=== PATIENT | female | born 1930 | race Caucasian/White ===

== ENCOUNTER → 2016-08-09 | Outpatient (CLI) | payer MEDICARE, OTHER | LOC: RAD 08:09 | PROVIDERS: ATTEND Specialist | DX: K21.9 Gastro-esophageal reflux disease without esophagitis (principal); R19.01 Right upper quadrant abdominal swelling, mass and lump; K44.9 Diaphragmatic hernia without obstruction or gangrene | CPT/HCPCS: 74247 ==

== ENCOUNTER → 2016-08-15 | Outpatient (CLI) | payer MEDICARE, OTHER ==
[~2016-08-15] MED LIST: AMINOPHYLLINE INJ/PF 250 MG/10 ML SDV IV ONE; REGADENOSON INJ 0.4 MG/5 ML DISP.SYRIN IV ONE
--- NOTE | 2016-08-15 14:23 | DRAGON STRESS TEST REPORT ---
INTRAVENOUS LEXISCAN CARDIOLITE STRESS TEST USING SINGLE PHOTON EMMISION COMPUTERIZED TOMOGRAPHIC. DATE OF PROCEDURE: August 15, 2016 INDICATION : Chest pain CARDIAC RISK FACTORS: Hypertension RESTING EKG: Sinus rhythm, LVH with secondary ST-T wave changes STRESS EKG: No significant changes noted with LexiScan bolus REASON FOR TERMINATION: Protocol. PROCEDURE REPORT: Baseline heart rate 77 beats per minute with blood pressure of 153/94. Patient had no significant complaints. Heart rate at 2 minutes post bolus 100 with a blood pressure of and 171/72. 3 minutes post bolus heart rate 96 with blood pressure of 158/78. No significant EKG changes were noted. Patient had no significant complaints during the procedure or postprocedure. CONCLUSIONS: Normal EKG and hemodynamic response to IV LexiScan. NUCLEAR DATA: At rest the patient was given 9.91 millicuries of technetium 99 sestamibi injected intravenously. As per protocol rest gated SPECT images were obtained. Subsequently the patient was given intravenous LexiScan at a dose of 0.4 mg in 5 mL intravenously, followed by flush with normal saline. Subsequently the stress dose of 31.9 millicuries of technetium 99 sestamibi was injected intravenously. As per protocol stress gated images were obtained. NUCLEAR INTERPRETATION: Both raw and processed data were used for interpretation. Visual, qualitative, computer-generated quantitative data was used. There was good myocardial uptake of technetium compound. Motion artifact and soft tissue attenuations were noted. Increased visceral uptake was noted. No definitive areas of transient perfusion defect noted. No definitive areas of fixed perfusion defect or scars noted. EKG gated imaging showed LV EF at 51 %, rest and stress gated EF similar visually. T. I D. ratio was 1.02. Lung heart ratio noted to be within normal limits 0.25. No significant extracardiac and abnormal radiotracer activities were noted. RV free wall uptake was noted to be normal. IMPRESSION: Also refer to comments under nuclear interpretation. Also test results needs to be interpreted in the context of pretest probability. 1. There is no definitive scintigraphic evidence of LexiScan induced myocardial ischemia. 2. There is no definitive scintigraphic evidence of myocardial infarction/scar. 3. EKG gated imaging shows left ejection fraction of approximately 51 %. 4. Clinical correlation requested as occasionally single vessel disease or balanced ischemia could be missed. In approximately 10% of the cases Lexiscan may not cause adequate vasodilatory stress. RECOMMENDATIONS: Aggressive risk factor modification, medical therapy. Clinical correlation with echocardiogram derived ejection fraction. Inability to exercise by itself can lead to increased cardiovascular event risks. Consider cardiology consultation if clinically indicated. I AM AVAILABLE FOR CARDIOLOGY CONSULTATION AND FOLLOWUP IF REQUESTED BY PMD David Cadena M.D., [facility] Horologist windows systems engineer, Board certified in cardiovascular diseases, Nuclear cardiology, Echocardiography Cardiac CT and cardiac MRI Ph. [phone] [facility]
== END ==
LOC: RAD 07:32
PROVIDERS: ATTEND Internal Medicine Cardiovascular Disease
DX: R07.9 Chest pain, unspecified (principal)
CPT/HCPCS: 93017; 78452; A9500; J2785; J0280; Q9969

== ENCOUNTER 2017-01-24 21:02 | Emergency (ER) | payer MEDICARE, OTHER ==
[2017-01-24 21:26] VITALS: BP 158/68
== END 2017-01-24 23:11 | disposition left against medical advice (07) ==
LOC: ER 21:02
DX: Z53.21 Procedure and treatment not carried out due to patient leaving prior to being seen by health care provider (principal)

== ENCOUNTER 2017-06-28 15:29 | Observation (INO) | payer MEDICARE, OTHER ==
--- NOTE | 2017-06-28 16:01 | ER Document Report ---
ED General - General Chief Complaint: Weakness Stated Complaint: WEAKNESS Time Seen by Provider: 06/28/17 15:42 Mode of Arrival: Medic Information source: Patient Notes: This is an 86-year-old female with a history of hypertension and coronary artery disease who is brought in by EMS for an episode of generalized weakness, slurred speech, near syncope. Patient was in the kitchen preparing a meal at the time. Patient is accompanied by family member who states that he tried to have her smile and she was unable to do it. He states that the patient was slurring speech during the event. Patient denies any chest pain at the time. She did report shortness of breath. TRAVEL OUTSIDE OF THE [place] IN LAST 30 DAYS: No - HPI Onset: Just prior to arrival Onset/Duration: Sudden Quality of pain: No pain Associated symptoms: Shortness of breath, Weakness, Other - Slurred speech. denies: Chest pain, Chills, Fever Exacerbated by: Denies Relieved by: Denies Similar symptoms previously: No Recently seen / treated by doctor: No - Related Data Allergies/Adverse Reactions: propoxyphene HCl [From Darvon] Allergy (Intermediate, Verified 06/28/17 15:45) heart palpitations Past Medical History - General Information source: Patient - Social History Smoking Status: Never Smoker Cigarette use (# per day): No Chew tobacco use (# tins/day): No Frequency of alcohol use: None Drug Abuse: None Lives with: Family Family History: Reviewed & Not Pertinent Patient has suicidal ideation: No Patient has homicidal ideation: No - Past Medical History Cardiac Medical History: Reports: Hx Heart Attack, Hx Hypertension - on meds Denies: Hx Coronary Artery Disease Pulmonary Medical History: Denies: Hx Asthma, Hx Bronchitis, Hx COPD, Hx Pneumonia Neurological Medical History: Denies: Hx Cerebrovascular Accident, Hx Seizures Renal/ Medical History: Denies: Hx Peritoneal Dialysis GI Medical History: Denies: Hx Hepatitis, Hx Hiatal Hernia, Hx Ulcer Musculoskeltal Medical History: Reports Hx Arthritis - Osteo Infectious Medical History: Denies: Hx Hepatitis Past Surgical History: Reports: Hx Cardiac Surgery - stents x 3, Hx Hysterectomy. Denies: Hx Mastectomy, Hx Open Heart Surgery, Hx Pacemaker - Immunizations Hx Diphtheria, Pertussis, Tetanus Vaccination: Yes Review of Systems - Review of Systems Constitutional: No symptoms reported EENT: No symptoms reported Cardiovascular: See HPI Respiratory: No symptoms reported Gastrointestinal: No symptoms reported Genitourinary: No symptoms reported Female Genitourinary: No symptoms reported Musculoskeletal: No symptoms reported Skin: No symptoms reported Hematologic/Lymphatic: No symptoms reported Neurological/Psychological: See HPI Physical Exam - Vital signs Vitals: Temp Pulse Resp BP Pulse Ox 97.5 F 77 16 147/58 H 98 06/28/17 15:30 06/28/17 15:30 06/28/17 15:30 06/28/17 15:30 06/28/17 15:30 Notes: Physical exam: GENERAL: 86-year-old female, alert and oriented 3, no acute distress HEAD: Atraumatic, normocephalic. EYES: Pupils equal round and reactive to light, extraocular movements intact, sclera anicteric, conjunctiva are normal. ENT: TMs normal, nares patent, oropharynx clear without exudates. Moist mucous membranes. NECK: Normal range of motion, supple without obvious mass or JVD. LUNGS: Breath sounds clear to auscultation bilaterally and equal. No wheezes rales or rhonchi. HEART: Regular rate and rhythm without murmurs, rubs or gallops. ABDOMEN: Soft, normoactive bowel sounds. No tenderness to palpation. No guarding, no rebound. No masses appreciated. EXTREMITIES: Normal range of motion, no pitting or edema. No clubbing or cyanosis. NEUROLOGICAL: The patient is alert and oriented 3, she is keenly responsive. She is able to answer the month and the her age correctly. She is able to follow commands (closing her eyes and opening them up again, making a fist and opening them up), she has a normal gaze, her visual patterson are tested and are normal, there is no obvious facial palsy, there is no motor drift of either arm or leg, her sensory is grossly intact, her best language tested: She got all picture descriptions correct, object naming and sentence reading was good. Her speech is clear (as per family member at the bedside), there is no extinction or inattention. Her NIH score is 0. PSYCH: Normal mood, normal affect. SKIN: Warm, Dry, normal turgor, no rashes or lesions noted. Course - Vital Signs Vital signs: Temp Pulse Resp BP Pulse Ox 97.5 F 78 16 133/37 H 96 06/28/17 15:30 06/28/17 18:00 06/28/17 18:00 06/28/17 18:02 06/28/17 18:02 - Laboratory Result Diagrams: 06/28/17 15:36 06/28/17 15:36 Laboratory results interpreted by me: 06/28/17 06/28/17 15:36 15:36 RDW 14.6 H Potassium 3.4 L Est GFR (Non-Af Amer) 51 L - Diagnostic Test Radiology reviewed: Image reviewed, Reports reviewed - CT of the head shows no acute process. Chest x-ray shows no infiltrates. - EKG Interpretation by Me Rate: Normal Rhythm: NSR - EKG shows normal sinus rhythm with a ventricular rate of 72, no acute ST-T wave changes Discharge - Discharge Clinical Impression: Near-syncope, TIA Condition: Stable Disposition: ADMITTED OBSERVATION Admitting Provider: Hospitalist - Dr Parks Unit Admitted: Telemetry
[2017-06-28] MEDS ORDERED: ASPIRIN 81 MG TABLET, CHEWABLE PO ONE (16:04)
[2017-06-28 16:27] LABS: INTERNATIONAL RATION (INR) 0.85; PROTHROMBIN TIME 12.3 SEC (11.4-15.4)
[2017-06-28 16:28] LABS: ALANINE AMINOTRANSFERASE 34 U/L (9-52); ALBUMIN 4.3 g/dL (3.5-5.0); ALKALINE PHOSPHATASE 84 U/L (38-126); ANION GAP 11 (5-19); ASPARTATE AMINO TRANSFERASE 26 U/L (14-36); BILIRUBIN,DIRECT 0.3 mg/dL (0.0-0.4); BILIRUBIN,TOTAL 0.5 mg/dL (0.2-1.3); BLOOD UREA NITROGEN 17 mg/dL (7-20); CALCIUM 10.2 mg/dL (8.4-10.2); CARBON DIOXIDE 30 mmol/L (22-30); CHLORIDE 102 mmol/L (98-107); CREATINE KINASE 61 U/L (30-135); GLUCOSE 109 mg/dL (75-110); POTASSIUM 3.4 mmol/L (3.6-5.0); SODIUM 143.4 mmol/L (137-145)
--- NOTE | 2017-06-28 16:28 | RADIOLOGY REPORT (SQ) ---
EXAM DESCRIPTION: CT HEAD WITHOUT COMPLETED DATE/TIME: 06/28/2017 4:16 pm REASON FOR STUDY: slurred speech COMPARISON: 03/13/2010 TECHNIQUE: Axial images acquired through the brain without intravenous contrast. Images reviewed wi th bone, brain and subdural windows. Images stored on PACS. All CT scanners at this facility use dose modulation, iterative reconstruction, and/or weight based d osing when appropriate to reduce radiation dose to as low as reasonably achievable (ALARA). [facility]: Dose Right [facility]: CareDose [facility]: Dose Right [facility]: Teradose 4D [facility]: Smart Websand RADIATION DOSE: CT Rad equipment meets quality standard of care and radiation dose reduction techniq ues were employed. CTDIvol: 64.6 mGy. DLP: 1034 mGy-cm.mGy. LIMITATIONS: None. FINDINGS: VENTRICLES: Mildly prominent. CEREBRUM: No masses. No hemorrhage. No midline shift. Areas of low density in the white matter mos t likely due to chronic micro-vascular ischemic change, noting scattered lacunar infarcts. No eviden ce for acute infarction. CEREBELLUM: No masses. No hemorrhage. No alteration of density. No evidence for acute infarction. EXTRAAXIAL SPACES: Age-related involutional change. No fluid collections. No masses. ORBITS AND GLOBE: No intra- or extraconal masses. Normal contour of globe without masses. CALVARIUM: No fracture. PARANASAL SINUSES: No fluid or mucosal thickening. SOFT TISSUES: No mass or hematoma. OTHER: No other significant finding. IMPRESSION: CHRONIC CHANGES OF ATROPHY AND MICROVASCULAR ISCHEMIA. NO ACUTE PROCESS. EVIDENCE OF ACUTE STROKE: NO. TECHNICAL DOCUMENTATION: JOB ID: [id number] Quality ID # [id number]: Final reports with documentation of one or more dose reduction techniques (e.g., Au tomated exposure control, adjustment of the mA and/or kV according to patient size, use of iterative reconstruction technique) 2010 [employer]- All Rights Reserved
[2017-06-28 16:40] LABS: ABSOLUTE BASOPHILS # (AUTO) 0.1 10^3/uL (0.0-0.2); ABSOLUTE EOSINOPHILS # (AUTO) 0.2 10^3/uL (0.0-0.6); ABSOLUTE LYMPHOCYTES (AUTO) 1.9 10^3/uL (0.5-4.7); ABSOLUTE MONOCYTES (AUTO) 0.6 10^3/uL (0.1-1.4); ABSOLUTE NEUT (AUTO) 4.5 10^3/uL (1.7-8.2); BASOPHILS % (AUTO) 0.8 % (0-2); CREATINE KINASE MB 1.12 ng/mL (<4.55); EOSINOPHILS % (AUTO) 2.1 % (0-6); HEMATOCRIT 42.2 % (36.0-47.0); HEMOGLOBIN 14.2 g/dL (12.0-15.5); LYMPHOCYTES % (AUTO) 25.9 % (13-45); MEAN CORPUSCULAR HEMOGLOBIN 29.8 pg (27.0-33.4); MEAN CORPUSCULAR HGB CONC 33.7 g/dL (32.0-36.0); MEAN CORPUSCULAR VOLUME 89 fl (80-97); MONOCYTES % (AUTO) 8.7 % (3-13); PLATELET COUNT 270 10^3/uL (150-450); RED BLOOD COUNT 4.77 10^6/uL (3.72-5.28); RED CELL DISTRIBUTION WIDTH 14.6 % (11.5-14.0); SEGMENTED NEUTROPHILS % (AUTO) 62.5 % (42-78); TOTAL CELLS COUNTED % (AUTO) 100 %; WHITE BLOOD COUNT 7.2 10^3/uL (4.0-10.5)
[2017-06-28 16:41] LABS: TROPONIN I < 0.012 ng/mL
--- NOTE | 2017-06-28 16:46 | RADIOLOGY REPORT (SQ) ---
EXAM DESCRIPTION: CHEST SINGLE VIEW COMPLETED DATE/TIME: 06/28/2017 4:22 pm REASON FOR STUDY: weakness, near syncope COMPARISON: 03/13/2010 EXAM PARAMETERS: NUMBER OF VIEWS: One view. TECHNIQUE: Single frontal radiographic view of the chest acquired. RADIATION DOSE: NA LIMITATIONS: None. FINDINGS: LUNGS AND PLEURA: No opacities, masses or pneumothorax. No pleural effusion. MEDIASTINUM AND HILAR STRUCTURES: No masses. Contour normal. HEART AND VASCULAR STRUCTURES: Heart normal in size. Normal vasculature. BONES: No acute findings. HARDWARE: None in the chest. OTHER: No other significant finding. IMPRESSION: NO ACUTE RADIOGRAPHIC FINDING IN THE CHEST. TECHNICAL DOCUMENTATION: JOB ID: [id number] [employer]- All Rights Reserved
[2017-06-28] MEDS ORDERED: POTASSIUM CHLORIDE 10 MEQ TABLET.SA PO ONE (18:46)
[2017-06-28] MEDS ORDERED: DOCUSATE SODIUM 100 MG CAPSULE PO PRN (19:17)
[2017-06-28] MEDS ORDERED: MAGNESIUM HYDROXIDE SUSP 30 ML UDCUP PO PRN (19:17)
--- NOTE | 2017-06-28 20:08 | EKG REPORT ---
SEVERITY:- BORDERLINE ECG - SINUS RHYTHM BORDERLINE T ABNORMALITIES, DIFFUSE LEADS : Confirmed by: David Cadena 28-Jun-2017 20:07:12
[2017-06-28] MEDS ORDERED: ATORVASTATIN CALCIUM 80 MG TABLET PO SCH (22:00)
[2017-06-28] MEDS ORDERED: ZOLPIDEM TARTRATE 5 MG TABLET PO PRN (22:37)
[2017-06-28] MEDS ORDERED: BENAZEPRIL HCL 10 MG TABLET PO ONE (22:37)
[2017-06-28] MEDS: BUPROPION HCL 100 MG TABLET PO SCH (22:50)
[2017-06-28] MEDS: HEPARIN SOD (PORCINE) 5,000 UNIT/ML 1 ML SYRINGE SUBCUT SCH (22:50)
[2017-06-29 05:17] LABS: CHOLESTEROL 112.84 mg/dL (0-200); TRIGLYCERIDES 72 mg/dL (<150)
[2017-06-29] MEDS: BUPROPION HCL 100 MG TABLET PO SCH ×2 (05:29→16:42)
[2017-06-29] MEDS: HEPARIN SOD (PORCINE) 5,000 UNIT/ML 1 ML SYRINGE SUBCUT SCH ×2 (05:30→16:49)
[2017-06-29 05:34] LABS: DIRECT LDL < 30 mg/dL (<100)
--- NOTE | 2017-06-29 05:51 | PDOC H&P ---
History of Present Illness Admission Date/PCP: 06/28/17 18:39 REUBEN ANDERSON MD Patient complains of: Weakness and slurred speech History of Present Illness: SALVATORE LR is a 86 year old female with past medical history of coronary artery disease status post coronary stents of 3 unknown arteries and hypertension. Patient presents with weakness and slurred speech after standing up from the toilet. She denies palpitations nausea vomiting headache blurred vision but was noted by her son to be unable to smile and some slurred speech. Symptoms resolved spontaneously within 10 minutes of onset without intervention. In the emergency room she is alert and oriented 3, talkative and following commands without deficits and at baseline. Her initial workup including CT of the head is unremarkable and she is referred to the hospitalist for admission. She denies previous episode, recent change in medications and unremarkable mood. Telemetry reveals several episodes of nonsustained V. tach with runs less than 10 which were asymptomatic. Past Medical History Cardiac Medical History: Reports: Myocardial Infarction, Hypertension - on meds Denies: Coronary Artery Disease Pulmonary Medical History: Denies: Asthma, Bronchitis, Chronic Obstructive Pulmonary Disease (COPD), Pneumonia Neurological Medical History: Denies: Seizures GI Medical History: Denies: Hepatitis, Hiatal Hernia Musculoskeltal Medical History: Reports: Arthritis - Osteo Hematology: Denies: Anemia, Sickle Cell Disease Past Surgical History Past Surgical History: Reports: Hysterectomy Denies: Amputation, Mastectomy, Pacemaker Social History Information Source: Patient, [facility] Records Lives with: Family Smoking Status: Never Smoker Frequency of Alcohol Use: None Family History Family History: CAD, CVA Parental Family History Reviewed: Yes Children Family History Reviewed: Yes Sibling(s) Family History Reviewed.: Yes Medication/Allergy Home Medications: Amlodipine Besylate/Benazepril [Lotrel 5-20 Mg Capsule] 1 each PO DAILY Gluc Van/Chondro Van A/Vit C/Mn [Glucosamine Chondroitin Tab] 1 each PO BID Levothyroxine Sodium [Synthroid 50 Mcg Tablet] 50 mcg PO DAILY 07/03/11 Aspirin [Aspirin 81 mg Chewable Tablet] 81 mg PO DAILY 10/18/13 Esomeprazole Magnesium [Nexium] 40 mg PO DAILY 10/18/13 Fluticasone Propionate [Flonase Nasal [employer] 50 Mcg/Fe [employer] 16 gm] 1 spray IH PRN PRN 10/18/13 Gabapentin [Neurontin 300 mg Capsule] 300 mg PO DAILY 10/18/13 Hydrochlorothiazide 25 mg PO DAILY 10/18/13 Multivitamin [Tab-A-Nikolay (Multiple Vitamin) Tablet] 1 tab PO DAILY 10/18/13 Zolpidem Tartrate [Ambien 10 mg Tablet] 5 mg PO PRN PRN 10/18/13 Bupropion HCl [Wellbutrin Sr 150 mg Tablet] 1 tab PO Q12 10/19/13 Diazepam 5 mg PO PRN PRN 06/29/17 Nitroglycerin 0.4 mg PO PRN PRN 06/29/17 Tramadol HCl [Ultram] 50 mg PO PRN PRN 06/29/17 Allergies/Adverse Reactions: propoxyphene HCl [From Darvon] Allergy (Intermediate, Verified 06/28/17 15:45) heart palpitations Review of Systems Constitutional: ABSENT: chills, fever(s), headache(s), weight gain, weight loss Eyes: ABSENT: visual disturbances Ears: ABSENT: hearing changes Cardiovascular: ABSENT: chest pain, dyspnea on exertion, edema, orthropnea, palpitations Respiratory: ABSENT: cough, hemoptysis Gastrointestinal: ABSENT: abdominal pain, constipation, diarrhea, hematemesis, hematochezia, nausea, vomiting Genitourinary: ABSENT: dysuria, hematuria Musculoskeletal: ABSENT: joint swelling Integumentary: ABSENT: rash, wounds Neurological: ABSENT: abnormal gait, abnormal speech, confusion, dizziness, focal weakness, syncope Psychiatric: ABSENT: anxiety, depression, homidical ideation, suicidal ideation Endocrine: ABSENT: cold intolerance, heat intolerance, polydipsia, polyuria Hematologic/Lymphatic: ABSENT: easy bleeding, easy bruising Physical Exam Vital Signs: Temp Pulse Resp BP Pulse Ox 98.3 F 87 20 140/57 H 98 06/29/17 03:48 06/29/17 04:00 06/29/17 04:00 06/29/17 04:00 06/29/17 04:00 Intake & Output 06/27/17 06/28/17 06/29/17 11:59 11:59 11:59 Intake Total 0 Balance 0 Weight 60.7 kg General appearance: PRESENT: no acute distress, well-developed, well-nourished Head exam: PRESENT: atraumatic, normocephalic Eye exam: PRESENT: conjunctiva pink, EOMI, PERRLA. ABSENT: scleral icterus Ear exam: PRESENT: normal external ear exam Mouth exam: PRESENT: moist, tongue midline Neck exam: ABSENT: carotid bruit, JVD, lymphadenopathy, thyromegaly Respiratory exam: PRESENT: clear to auscultation kwabena. ABSENT: rales, rhonchi, wheezes Cardiovascular exam: PRESENT: RRR. ABSENT: diastolic murmur, rubs, systolic murmur Pulses: PRESENT: normal dorsalis pedis pul Vascular exam: PRESENT: normal capillary refill GI/Abdominal exam: PRESENT: normal bowel sounds, soft. ABSENT: distended, guarding, mass, organolmegaly, rebound, tenderness Rectal exam: PRESENT: deferred Extremities exam: PRESENT: full ROM. ABSENT: calf tenderness, clubbing, pedal edema Neurological exam: PRESENT: alert, awake, oriented to person, oriented to place , oriented to time, oriented to situation, CN II-XII grossly intact. ABSENT: motor sensory deficit Psychiatric exam: PRESENT: appropriate affect, normal mood. ABSENT: homicidal ideation, suicidal ideation Skin exam: PRESENT: dry, intact, warm. ABSENT: cyanosis, rash Results Laboratory Results: 06/28/17 06/29/17 22:40 04:37 Magnesium 1.9 Triglycerides 72 Cholesterol 112.84 LDL Cholesterol Direct < 30 VLDL Cholesterol 14.0 HDL Cholesterol 72 06/28/17 22:40 Troponin I 0.012 Impressions: Chest X-Ray 06/28/17 16:04 IMPRESSION: NO ACUTE RADIOGRAPHIC FINDING IN THE CHEST. Head CT 06/28/17 16:05 IMPRESSION: CHRONIC CHANGES OF ATROPHY AND MICROVASCULAR ISCHEMIA. NO ACUTE PROCESS. EVIDENCE OF ACUTE STROKE: NO. Assessment & Plan - Diagnosis (1) TIA (transient ischemic attack) Is this a current diagnosis for this admission?: Yes Plan: Currently at baseline, telemetry observation with CVA care set, concern for nonsustained V. tach is because strongly suggest 30 day event monitor. (2) Nonsustained ventricular tachycardia Is this a current diagnosis for this admission?: Yes Plan: Patient does admit a history of palpitations and event monitor which was unremarkable. Several episodes on monitoring today will evaluate with chemistry and discuss with cardiology. (3) Coronary artery disease Is this a current diagnosis for this admission?: Yes Plan: Cardiology consult - Time Time Spent: 50 to 70 Minutes
[2017-06-29] MEDS ORDERED: LEVOTHYROXINE SODIUM 0.05 MG TABLET PO SCH ×2 (06:00)
[2017-06-29 09:35] VITALS: BP 144/75
[2017-06-29] MEDS ORDERED: GABAPENTIN 300 MG CAPSULE PO SCH (10:00)
[2017-06-29] MEDS ORDERED: LANSOPRAZOLE 30 MG TAB.RAP.DR PO SCH (10:00)
[2017-06-29] MEDS ORDERED: ASPIRIN 81 MG TABLET, CHEWABLE PO SCH (10:00)
--- NOTE | 2017-06-29 21:46 | RADIOLOGY REPORT (SQ) ---
EXAM DESCRIPTION: MRI HEAD WITHOUT COMPLETED DATE/TIME: 06/29/2017 10:36 am REASON FOR STUDY: tia E03.9 HYPOTHYROIDISM, UNSPECIFIED I47.2 VENTRICULAR TACHYCARDIA COMPARISON: CT 06/28/2017 TECHNIQUE: Multiplanar imaging includes non-contrasted T1, T2, FLAIR, and diffusion with ADC map seq uences. Images stored on PACS. LIMITATIONS: None. FINDINGS: ANATOMY: No anomalies. Normal vascular flow voids. Pituitary fossa normal. CSF SPACES: Atrophy induced prominence of ventricles and CSF spaces. CEREBRUM: High signal intensity lesions scattered throughout the white matter on FLAIR imaging with d istribution suggesting micro-vascular ischemic changes. No evidence of hemorrhage, mass, or extraaxi al fluid collection. POSTERIOR FOSSA: No signal alteration. No hemorrhage. No edema, masses or mass effect. Internal nelida tory canals, cerebello-pontine angles, mastoids normal. DIFFUSION IMAGING: Negative for acute or sub-acute infarction. ORBITS: No masses. Globes normal. PARANASAL SINUSES: No fluid levels. Mucosa normal. OTHER: No other significant finding. IMPRESSION: ATROPHY AND CHRONIC MICRO-VASCULAR ISCHEMIC CHANGES. OTHERWISE NORMAL MRI OF THE BRAIN W ITHOUT INTRAVENOUS GADOLINIUM CONTRAST. EVIDENCE OF ACUTE STROKE: NO. TECHNICAL DOCUMENTATION: JOB ID: [id number] [employer]- All Rights Reserved
--- NOTE | 2017-06-29 22:56 | RADIOLOGY REPORT (SQ) ---
EXAM DESCRIPTION: CAROTID DOPPLER COMPLETED DATE/TIME: 06/29/2017 10:24 pm REASON FOR STUDY: tia E03.9 HYPOTHYROIDISM, UNSPECIFIED I47.2 VENTRICULAR TACHYCARDIA COMPARISON: None. TECHNIQUE: Grayscale ultrasound, Doppler velocity and spectra, and color Doppler images acquired of the extra-cranial carotid and vertebral arteries. Images stored on PACS. LIMITATIONS: None. FINDINGS: RIGHT CAROTID CCA Velocities: Within normal limits. ICA Velocities Peak systolic 0.76 m/s. End diastolic 0.19 m/s. Proximal ICA/CCA peak systolic ratio 1.1. Spectra normal. No significant plaque. LEFT CAROTID CCA Velocities: Within normal limits. ICA Velocities Peak systolic 0.55 m/s. End diastolic 0.14 m/s. Proximal ICA/CCA peak systolic ratio 0.8. Spectra normal. No significant plaque. VERTEBRAL ARTERIES: Antegrade flow. Normal waveforms. SUBCLAVIAN ARTERIES: No finding. OTHER: No other significant finding. IMPRESSION: NO HEMODYNAMICALLY SIGNIFICANT STENOSIS. COMMENT: Quality ID #[id number]: Velocity criteria are extrapolated from the diameter data as defined by t he Society of Radiologists in Ultrasound Consensus Conference. Radiology 2003: 229; 340-346. TECHNICAL DOCUMENTATION: JOB ID: [id number] [employer]- All Rights Reserved
--- NOTE | 2017-06-30 05:33 | DISCHARGE SUMMARY E ---
Discharge Summary NAME: SALVATORE LR : 1930 AGE: 86Y ADMITTED: 06/28/2017 DISCHARGED: 06/29/2017 DISCHARGE DIAGNOSIS: TRANSIENT ISCHEMIC ATTACK. HISTORY OF PRESENT ILLNESS: The patient is an 86-year-old female, who presented with sudden onset of dysarthria and expressive aphasia, as well as some drooling. The patient had this last about 15 minutes and it resolved spontaneously. The patient had been taking aspirin 81 mg prior to presentation. The patient is admitted for workup of TIA. HOSPITAL COURSE: The patient is an 86-year-old female, who presented with expressive aphasia, drooling and some confusion. It was felt that she had a TIA as these symptoms resolved after 15 or 20 minutes. The patient had been on aspirin 81 mg daily prior and her aspirin was increased to 325 mg daily. The patient was monitored on telemetry and had no cardiac arrhythmias. Carotid Doppler was done and showed no significant stenosis. MRI showed some microvascular ischemic changes, but no acute changes. The patient was back to her baseline and it was felt she could be discharged home. PHYSICAL EXAMINATION: VITAL SIGNS: Patient is afebrile. Blood pressure 130/82, pulse 90, respirations 12. HEENT: Pupils equal, round and reactive. NECK: No carotid bruits. No thyromegaly. No JVD. CHEST: Exam clear to auscultation. CARDIOVASCULAR: Exam is regular rate and rhythm. No murmurs, rubs or gallops appreciated. PMI is in the left mid clavicular line. ABDOMEN: Exam with positive bowel sounds. Soft, nontender, no organomegaly. EXTREMITIES: Exam with no edema. Patient has 1+ dorsalis pedis pulses bilaterally. NEUROLOGIC: Exam is alert and oriented x3. Cranial nerves 2-12 are normal. Strength is normal. Sensory exam shows normal light touch throughout. Gait and station are normal. DISCHARGE MEDICATIONS: The patient is to continue with her previous outpatient medications exactly as she was taking before with the exception that her aspirin will be increased from 81 mg daily to 325 mg daily. FOLLOWUP: The patient will follow up with Dr. Neumann in 1-2 weeks. TIME SPENT: Twenty-five minutes. DICTATING PHYSICIAN: Carmella STREET M.D. [id number] PHY#: [id number] ID: [id number] JOB#: [id number] ACCT: [id number] cc:Kamilla GRACE M.D. Timothy Busteed, M.D. >
== END 2017-06-29 17:20 | disposition home or self-care (01) ==
LOC: ER 15:29 → EH 18:39 → 3W 22:23
PROVIDERS: ADMIT Internal Medicine; ATTEND Internal Medicine
DX: G45.9 Transient cerebral ischemic attack, unspecified (principal); I25.10 Atherosclerotic heart disease of native coronary artery without angina pectoris; I10 Essential (primary) hypertension; I47.2 Ventricular tachycardia; R06.02 Shortness of breath; R55 Syncope and collapse; I25.2 Old myocardial infarction; Z95.5 Presence of coronary angioplasty implant and graft; Z79.82 Long term (current) use of aspirin; Z82.3 Family history of stroke; Z82.49 Family history of ischemic heart disease and other diseases of the circulatory system; Z79.899 Other long term (current) drug therapy
CPT/HCPCS: 93005; 99285; 36415 ×2; 82553; 82550; 83735; 84443; 85025; 85610; 80053; 84484; 80061; 93880; 70551; 71045; 70450; 93010; G0378 ×3; A9270 ×10; J1644 ×2; J3490 ×2

== ENCOUNTER → 2017-07-24 | Outpatient (CLI) | payer MEDICARE, OTHER ==
[2017-07-24 16:31] LABS: ABSOLUTE EOSINOPHILS # (AUTO) 0.2 10^3/uL (0.0-0.6); ABSOLUTE LYMPHOCYTES (AUTO) 1.4 10^3/uL (0.5-4.7); ABSOLUTE MONOCYTES (AUTO) 0.5 10^3/uL (0.1-1.4); ABSOLUTE NEUT (AUTO) 4.1 10^3/uL (1.7-8.2); BASOPHILS % (AUTO) 0.7 % (0-2); EOSINOPHILS % (AUTO) 3.3 % (0-6); HEMATOCRIT 37.9 % (36.0-47.0); HEMOGLOBIN 12.9 g/dL (12.0-15.5); LYMPHOCYTES % (AUTO) 21.6 % (13-45); MEAN CORPUSCULAR HEMOGLOBIN 29.8 pg (27.0-33.4); MEAN CORPUSCULAR VOLUME 87 fl (80-97); MONOCYTES % (AUTO) 8.2 % (3-13); PLATELET COUNT 225 10^3/uL (150-450); RED BLOOD COUNT 4.34 10^6/uL (3.72-5.28); RED CELL DISTRIBUTION WIDTH 14.6 % (11.5-14.0); SEGMENTED NEUTROPHILS % (AUTO) 66.2 % (42-78); TOTAL CELLS COUNTED % (AUTO) 100 %; WHITE BLOOD COUNT 6.3 10^3/uL (4.0-10.5)
[2017-07-24 16:50] LABS: ALANINE AMINOTRANSFERASE 28 U/L (9-52); ALBUMIN 3.9 g/dL (3.5-5.0); ALKALINE PHOSPHATASE 74 U/L (38-126); ANION GAP 11 (5-19); ASPARTATE AMINO TRANSFERASE 22 U/L (14-36); BILIRUBIN,DIRECT 0.2 mg/dL (0.0-0.4); BILIRUBIN,TOTAL 0.4 mg/dL (0.2-1.3); BLOOD UREA NITROGEN 15 mg/dL (7-20); CALCIUM 9.6 mg/dL (8.4-10.2); CARBON DIOXIDE 29 mmol/L (22-30); CHLORIDE 103 mmol/L (98-107); GLUCOSE 100 mg/dL (75-110); POTASSIUM 4.1 mmol/L (3.6-5.0); SODIUM 142.5 mmol/L (137-145); TOTAL PROTEIN 6.4 g/dL (6.3-8.2); URIC ACID 6.2 mg/dL (2.5-7.5)
[2017-07-24 17:08] LABS: ERYTHROCYTE SEDIMENTATION RATE 11 mm/hr (0-30)
[2017-07-27 10:49] LABS: CYCLIC CITRUL PEPTIDE IGG/A AB 2 units (0-19)
== END ==
LOC: OD 15:09
PROVIDERS: ATTEND Physician Assistant
DX: M79.644 Pain in right finger(s) (principal); M15.1 Heberden's nodes (with arthropathy); M15.4 Erosive (osteo)arthritis; Z82.61 Family history of arthritis
CPT/HCPCS: 36415; 80053; 84550; 85025; 85652; 86038; 86200; 86430

== ENCOUNTER 2018-05-24 15:23 | Observation (INO) | payer MEDICARE, OTHER ==
[2018-05-24 15:49] LABS: ABSOLUTE EOSINOPHILS # (AUTO) 0.2 10^3/uL (0.0-0.6); ABSOLUTE LYMPHOCYTES (AUTO) 1.7 10^3/uL (0.5-4.7); ABSOLUTE MONOCYTES (AUTO) 0.6 10^3/uL (0.1-1.4); ABSOLUTE NEUT (AUTO) 3.2 10^3/uL (1.7-8.2); BASOPHILS % (AUTO) 0.5 % (0-2); EOSINOPHILS % (AUTO) 3.2 % (0-6); HEMATOCRIT 38.8 % (36.0-47.0); HEMOGLOBIN 13.2 g/dL (12.0-15.5); LYMPHOCYTES % (AUTO) 29.4 % (13-45); MEAN CORPUSCULAR HEMOGLOBIN 28.7 pg (27.0-33.4); MEAN CORPUSCULAR HGB CONC 34.2 g/dL (32.0-36.0); MEAN CORPUSCULAR VOLUME 84 fl (80-97); PLATELET COUNT 185 10^3/uL (150-450); RED BLOOD COUNT 4.61 10^6/uL (3.72-5.28); RED CELL DISTRIBUTION WIDTH 16.4 % (11.5-14.0); SEGMENTED NEUTROPHILS % (AUTO) 56.9 % (42-78); TOTAL CELLS COUNTED % (AUTO) 100 %; WHITE BLOOD COUNT 5.6 10^3/uL (4.0-10.5)
--- NOTE | 2018-05-24 15:53 | RADIOLOGY REPORT (SQ) ---
EXAM DESCRIPTION: CHEST SINGLE VIEW COMPLETED DATE/TIME: 05/24/2018 3:46 pm REASON FOR STUDY: bed t1 cp COMPARISON: 03/13/2010 EXAM PARAMETERS: NUMBER OF VIEWS: One view. TECHNIQUE: Single frontal radiographic view of the chest acquired. RADIATION DOSE: NA LIMITATIONS: None. FINDINGS: LUNGS AND PLEURA: No opacities, masses or pneumothorax. No pleural effusion. MEDIASTINUM AND HILAR STRUCTURES: No masses. Contour normal. HEART AND VASCULAR STRUCTURES: Heart normal in size. Normal vasculature. BONES: No acute findings. HARDWARE: None in the chest. OTHER: No other significant finding. IMPRESSION: NO ACUTE RADIOGRAPHIC FINDING IN THE CHEST. TECHNICAL DOCUMENTATION: JOB ID: [id number] [employer]- All Rights Reserved Reading location - IP/workstation name: [email or web address]
[2018-05-24 16:07] LABS: ALANINE AMINOTRANSFERASE 26 U/L (9-52); ALBUMIN 4.1 g/dL (3.5-5.0); ALKALINE PHOSPHATASE 89 U/L (38-126); ANION GAP 14 (5-19); ASPARTATE AMINO TRANSFERASE 26 U/L (14-36); BILIRUBIN,DIRECT 0.2 mg/dL (0.0-0.4); BILIRUBIN,TOTAL 0.4 mg/dL (0.2-1.3); BLOOD UREA NITROGEN 19 mg/dL (7-20); CALCIUM 9.3 mg/dL (8.4-10.2); CARBON DIOXIDE 25 mmol/L (22-30); CHLORIDE 105 mmol/L (98-107); CREATINE KINASE 46 U/L (30-135); GLUCOSE 103 mg/dL (75-110); POTASSIUM 4.1 mmol/L (3.6-5.0); SODIUM 143.7 mmol/L (137-145); TOTAL PROTEIN 6.9 g/dL (6.3-8.2)
[2018-05-24 16:18] LABS: CREATINE KINASE MB 0.45 ng/mL (<4.55)
[2018-05-24 16:19] LABS: TROPONIN I < 0.012 ng/mL
--- NOTE | 2018-05-24 16:56 | ER Document Report ---
ED General - General Chief Complaint: General Weakness Stated Complaint: GENERAL WEAKNESS Time Seen by Provider: 05/24/18 15:44 Mode of Arrival: Ambulatory Information source: Patient Notes: 87-year-old female with known coronary artery disease brought into the emergency room after an episode of chest pain associated with near syncopal symptoms. TRAVEL OUTSIDE OF THE [place] IN LAST 30 DAYS: No - HPI Onset: Just prior to arrival Onset/Duration: Sudden Quality of pain: No pain Severity: None Pain Level: Denies Associated symptoms: Chest pain, Shortness of breath. denies: Nonproductive cough, Productive cough, Fever Exacerbated by: Denies Relieved by: Denies Similar symptoms previously: No Recently seen / treated by doctor: No - Related Data Allergies/Adverse Reactions: propoxyphene HCl [From Darvon] Allergy (Intermediate, Verified 06/28/17 15:45) heart palpitations Past Medical History - General Information source: Patient - Social History Smoking Status: Never Smoker Cigarette use (# per day): No Chew tobacco use (# tins/day): No Frequency of alcohol use: None Drug Abuse: None Lives with: Family Family History: CAD, CVA Patient has suicidal ideation: No Patient has homicidal ideation: No - Past Medical History Cardiac Medical History: Reports: Hx Heart Attack, Hx Hypertension - on meds Denies: Hx Coronary Artery Disease Pulmonary Medical History: Denies: Hx Asthma, Hx Bronchitis, Hx COPD, Hx Pneumonia Neurological Medical History: Denies: Hx Cerebrovascular Accident, Hx Seizures Renal/ Medical History: Denies: Hx Peritoneal Dialysis GI Medical History: Denies: Hx Hepatitis, Hx Hiatal Hernia, Hx Ulcer Musculoskeletal Medical History: Reports Hx Arthritis - Osteo Infectious Medical History: Denies: Hx Hepatitis Past Surgical History: Reports: Hx Cardiac Surgery - stents x 3, Hx Hysterectomy. Denies: Hx Mastectomy, Hx Open Heart Surgery, Hx Pacemaker - Immunizations Hx Diphtheria, Pertussis, Tetanus Vaccination: Yes Hx Pneumococcal Vaccination: 05/24/17 Review of Systems - Review of Systems Constitutional: denies: Chills, Fever EENT: No symptoms reported Cardiovascular: See HPI Respiratory: No symptoms reported Gastrointestinal: No symptoms reported Genitourinary: No symptoms reported Female Genitourinary: No symptoms reported Musculoskeletal: No symptoms reported Skin: No symptoms reported Hematologic/Lymphatic: No symptoms reported Neurological/Psychological: No symptoms reported Physical Exam - Vital signs Vitals: Pulse Ox 96 05/24/18 15:38 Notes: Physical exam: GENERAL: Patient is alert and oriented x3, no acute distress, no longer in pain. HEAD: Atraumatic, normocephalic. EYES: Pupils equal round and reactive to light, extraocular movements intact, sclera anicteric, conjunctiva are normal. ENT: TMs normal, nares patent, oropharynx clear without exudates. Moist mucous membranes. NECK: Normal range of motion, supple without obvious mass or JVD. LUNGS: Breath sounds clear to auscultation bilaterally and equal. No wheezes rales or rhonchi. HEART: Regular rate and rhythm without murmurs, rubs or gallops. ABDOMEN: Soft, normoactive bowel sounds. No tenderness to palpation. No guarding, no rebound. No masses appreciated. EXTREMITIES: Normal range of motion, no pitting or edema. No clubbing or cyanosis. NEUROLOGICAL: Cranial nerves II through XII grossly intact. Normal speech, moving all extremities. PSYCH: Normal mood, normal affect. SKIN: Warm, Dry, normal turgor, no rashes or lesions noted. Course - Vital Signs Vital signs: Temp Pulse Resp BP Pulse Ox 97.2 F 57 L 18 127/51 H 96 05/24/18 15:43 05/24/18 18:12 05/24/18 18:12 05/24/18 18:12 05/24/18 18:12 - Laboratory Result Diagrams: 05/24/18 15:04 05/24/18 15:04 Laboratory results interpreted by me: 05/24/18 05/24/18 15:04 15:04 RDW 16.4 H Creatinine 1.34 H Est GFR ( Amer) 45 L Est GFR (Non-Af Amer) 37 L - Diagnostic Test Radiology reviewed: Image reviewed, Reports reviewed - Chest x-ray shows no infiltrates - EKG Interpretation by Me Rate: Bradycardia - EKG shows sinus bradycardia with a ventricular rate of 48, no acute ST-T wave changes Discharge - Discharge Clinical Impression: Chest pain, Near syncope Condition: Stable Disposition: ADMITTED OBSERVATION Admitting Provider: Hospitalist - Dr Ruggiero Unit Admitted: Telemetry
--- NOTE | 2018-05-24 17:18 | EKG REPORT ---
SEVERITY:- BORDERLINE ECG - SINUS BRADYCARDIA BORDERLINE T WAVE ABNORMALITIES : Confirmed by: Isael Jaimes MD 24-May-2018 17:17:54
[2018-05-24] MEDS ORDERED: MORPHINE SULFATE 10 MG/ML INJ IV PRN (17:29)
[2018-05-24] MEDS ORDERED: NITROGLYCERIN 0.4 MG/TAB 25 TAB/BOTTLE SL PRN ×2 (17:29→17:35)
[2018-05-24] MEDS ORDERED: ZOLPIDEM TARTRATE 5 MG PO PRN (17:35)
[2018-05-24] MEDS ORDERED: LEVOTHYROXINE SODIUM 0.05 MG TABLET PO ONE (17:41)
[2018-05-24] MEDS ORDERED: [UNRECOGNIZED DRUG - OTHER] PO SCH (18:00)
--- NOTE | 2018-05-24 18:07 | PDOC H&P ---
History of Present Illness Admission Date/PCP: ARNOLDO LEE Patient complains of: Chest pain History of Present Illness: SALVATORE LR is a 87 year old female with history of coronary artery disease status post stent placement in March 2017, hypertension, hypothyroidism, abdominal aortic aneurysm, gastroesophageal reflux disease, depression, anxiety , seasonal allergies, restless leg syndrome, came to the emergency room with complaints of chest pain. Patient is given the history of left back pain for the last couple of days on and off. Today this morning she felt tired and felt like sleep he went to the bathroom and started having left-sided chest pain pain scale was 5 x 10 pressure-like pain localized pain not associated with shortness of breath at that time she felt like she is fading away started having severe sweating and the son who lives next door came and give her a nitroglycerin pill after that he felt like his mom is possibly about to pass out so he called EMS to bring her to the hospital for further evaluation. No history of nausea vomiting diarrhea reported. No problems with urination. Complains of occasional headaches. Denies any shortness of breath. She said she has this mild cough. And slight runny nose. Runny nose with clear drainage. In the emergency room the routine workup was done troponin was negative EKG shows sinus bradycardia. On examination patient alert and awake communicating very well. She preferred to be a full code. Past Medical History Cardiac Medical History: Reports: Myocardial Infarction, Hypertension - on meds Denies: Coronary Artery Disease Pulmonary Medical History: Denies: Asthma, Bronchitis, Chronic Obstructive Pulmonary Disease (COPD), Pneumonia EENT Medical History: Reports: Other - Seasonal allergies Neurological Medical History: Reports: Other - History of TIA Denies: Seizures Endocrine Medical History: Reports: Hypothyroidism GI Medical History: Reports: Gastroesophageal Reflux Disease Denies: Hepatitis, Hiatal Hernia Musculoskeltal Medical History: Reports: Arthritis - Osteo Psychiatric Medical History: Reports: Depression, General Anxiety Disorder Hematology: Denies: Anemia, Sickle Cell Disease Past Surgical History Past Surgical History: Reports: Appendectomy, Hysterectomy Denies: Amputation, Mastectomy, Pacemaker Social History Smoking Status: Never Smoker Frequency of Alcohol Use: None Family History Family History: CAD, CVA Parental Family History Reviewed: Yes - Son is with history of diabetes mellitus , daughter a few years ago Children Family History Reviewed: Yes Sibling(s) Family History Reviewed.: Yes Medication/Allergy Home Medications: Amlodipine Besylate/Benazepril [Lotrel 5-20 Mg Capsule] 1 each PO DAILY Gluc Van/Chondro Van A/Vit C/Mn [Glucosamine Chondroitin Tab] 1 each PO BID Levothyroxine Sodium [Synthroid 50 Mcg Tablet] 50 mcg PO DAILY 07/03/11 Aspirin [Aspirin 81 mg Chewable Tablet] 81 mg PO DAILY 10/18/13 Esomeprazole Magnesium [Nexium] 40 mg PO DAILY 10/18/13 Fluticasone Propionate [Flonase Nasal [place] 50 Mcg/[place] 16 gm] 1 spray IH PRN PRN 10/18/13 Gabapentin [Neurontin 300 mg Capsule] 300 mg PO DAILY 10/18/13 Multivitamin [Tab-A-Nikolay (Multiple Vitamin) Tablet] 1 tab PO DAILY 10/18/13 Zolpidem Tartrate [Ambien 10 mg Tablet] 5 mg PO PRN PRN 10/18/13 Diazepam 5 mg PO PRN PRN 06/29/17 Nitroglycerin 0.4 mg PO PRN PRN 06/29/17 Tramadol HCl [Ultram] 50 mg PO PRN PRN 06/29/17 Bupropion HCl [Wellbutrin Xl 300mg 24hr Tablet] 1 tab PO DAILY 05/24/18 Carvedilol [Coreg 3.125 mg Tablet] 1 tab PO BID 05/24/18 Cholecalciferol (Vitamin D3) [Vitamin D3 1000 Unit Tablet] See Protocol Furosemide [Lasix 20 mg Tablet] 0.5 tab PO DAILY 05/24/18 Allergies/Adverse Reactions: propoxyphene HCl [From Darvon] Allergy (Intermediate, Verified 06/28/17 15:45) heart palpitations Review of Systems Constitutional: PRESENT: fatigue, weakness. ABSENT: fever(s) Eyes: ABSENT: visual disturbances Ears: ABSENT: hearing changes Nose, Mouth, and Throat: PRESENT: other - Nasal discharge Cardiovascular: ABSENT: chest pain, dyspnea on exertion, orthropnea Respiratory: PRESENT: cough. ABSENT: dyspnea Gastrointestinal: ABSENT: abdominal pain, diarrhea, nausea, vomiting Genitourinary: ABSENT: dysuria, hematuria Musculoskeletal: PRESENT: muscle weakness Psychiatric: PRESENT: anxiety. ABSENT: hallucinations Physical Exam Vital Signs: Temp Pulse Resp BP Pulse Ox 97.2 F 46 L 15 130/89 H 96 05/24/18 15:43 05/24/18 15:43 05/24/18 15:43 05/24/18 15:43 05/24/18 15:43 General appearance: PRESENT: no acute distress Head exam: PRESENT: atraumatic Eye exam: PRESENT: PERRLA Teeth exam: PRESENT: edentulous Neck exam: ABSENT: carotid bruit, JVD, lymphadenopathy, thyromegaly Respiratory exam: PRESENT: clear to auscultation kwabena. ABSENT: rales, rhonchi, wheezes Cardiovascular exam: PRESENT: RRR. ABSENT: diastolic murmur, rubs, systolic murmur GI/Abdominal exam: PRESENT: normal bowel sounds, soft. ABSENT: distended, guarding, mass, organolmegaly, rebound, tenderness Neurological exam: PRESENT: alert, awake, oriented to person, oriented to place , oriented to time, oriented to situation, CN II-XII grossly intact. ABSENT: motor sensory deficit Psychiatric exam: PRESENT: anxious, appropriate affect, normal mood. ABSENT: agitated, homicidal ideation, suicidal ideation Results Laboratory Results: 05/24/18 15:04 05/24/18 15:04 05/24/18 05/24/18 15:04 15:04 WBC 5.6 RBC 4.61 Hgb 13.2 Hct 38.8 MCV 84 MCH 28.7 MCHC 34.2 RDW 16.4 H Plt Count 185 Seg Neutrophils % 56.9 Lymphocytes % 29.4 Monocytes % 10.0 Eosinophils % 3.2 Basophils % 0.5 Absolute Neutrophils 3.2 Absolute Lymphocytes 1.7 Absolute Monocytes 0.6 Absolute Eosinophils 0.2 Absolute Basophils 0.0 Sodium 143.7 Potassium 4.1 Chloride 105 Carbon Dioxide 25 Anion Gap 14 BUN 19 Creatinine 1.34 H Est GFR ( Amer) 45 L Est GFR (Non-Af Amer) 37 L Glucose 103 Calcium 9.3 Total Bilirubin 0.4 AST 26 ALT 26 Alkaline Phosphatase 89 Total Protein 6.9 Albumin 4.1 05/24/18 05/24/18 15:04 15:04 Creatine Kinase 46 CK-MB (CK-2) 0.45 Troponin I < 0.012 Impressions: Chest X-Ray 05/24/18 15:29 IMPRESSION: NO ACUTE RADIOGRAPHIC FINDING IN THE CHEST. Assessment & Plan - Diagnosis (1) Chest pain Is this a current diagnosis for this admission?: Yes Plan: 05/24/2018 plan today is to do the serial cardiac enzymes x3, EKGs x3 every 8 hours. Cardiology consult was requested. Echocardiogram was requested. Patient was started on aspirin, she is already on cholesterol medication, she was placed on Lovenox 30 mg subcu daily, lipid profile was requested for the morning. Pharmacological stress test was requested for tomorrow. PRN morphine was ordered was placed for chest pains. She was placed on oxygen 2 L nasal cannula. sHe was admitted under observation status. nitroglycerin 0.4 mg every 5 minutes as needed was ordered for chest pain. Patient's heart rate is 46 in the ER, because of the bradycardia beta-gabbi was not started as part of VT core pressure. (2) Coronary artery disease Is this a current diagnosis for this admission?: Yes Plan: 05/24/2018 patient has history of coronary artery disease status post stent placement in March 2017. Follow-up with gum [facility] in [facility]. Cardiology consult was requested acute VT code measures were implemented and patient was arranged for formal vascular stress test tomorrow. Patient does not have any stent card with her. Patient's heart rate is 46 in the ER. Beta blockers were not started. (3) HTN (hypertension) Qualifiers: Hypertension type: essential hypertension Qualified Code(s): I10 - Essential (primary) hypertension Is this a current diagnosis for this admission?: Yes Plan: 05/24/2018 patient blood pressure is 130/89 with heart rate of 46. She is on amlodipine/benazepril 5/20 mg po daily, Lasix 20 mg half tablet daily, Coreg 3.125 mg p.o. twice daily. We will resume her home medications here. (4) TIA (transient ischemic attack) Is this a current diagnosis for this admission?: Yes Plan: 05/24/18 review of the old records shows patient has previous history of CVA/ TIA. But the patient denies she had a history of TIA before. Patient is alert and oriented communicating well on examination no focal neurological deficits noticed. (5) Restless leg syndrome Is this a current diagnosis for this admission?: Yes Plan: 05/24/2018 for her restless leg syndrome patient is on Neurontin at home. Plan is to continue the medication during the hospital stay. Denies any symptoms of restless leg syndrome at this point. (6) Hypothyroidism Is this a current diagnosis for this admission?: Yes Plan: 05/24/2018 is taking levothyroxine 50 mcg daily for hypothyroidism to resume the medication during the hospital stay. (7) Depression Is this a current diagnosis for this admission?: Yes Plan: 2017 has history of anxiety and depression she is on diazepam 5 milligrams p.o. daily, Wellbutrin 300 mg p.o. daily at home. plan is to restart the medications here. (8) Insomnia Is this a current diagnosis for this admission?: Yes Plan: 05/24/2018 she has history of insomnia she is taking zolpidem 5 mg p.o. at bedtime. To resume zolpidem here. - Time Time Spent: 30 to 50 Minutes Medications reviewed and adjusted accordingly: Yes Anticipated discharge: Home
[2018-05-24] MEDS ORDERED: ENOXAPARIN SODIUM INJ 30 MG/0.3 ML DISP.SYRIN SUBCUT SCH (22:00)
[2018-05-24] MEDS ORDERED: FAMOTIDINE 20 MG TABLET PO SCH (22:00)
[2018-05-24] MEDS ORDERED: SIMVASTATIN 10 MG TABLET PO SCH (22:00)
[2018-05-25 01:01] LABS: CREATINE KINASE MB 0.39 ng/mL (<4.55)
[2018-05-25 01:10] LABS: TROPONIN I < 0.012 ng/mL
[2018-05-25] MEDS: BUPROPION HCL 100 MG TABLET PO SCH ×3 (05:47→15:51)
[2018-05-25] MEDS ORDERED: LEVOTHYROXINE SODIUM 0.05 MG TABLET PO SCH (06:00)
[2018-05-25 06:43] LABS: HEMATOCRIT 37.1 % (36.0-47.0); HEMOGLOBIN 12.7 g/dL (12.0-15.5); MEAN CORPUSCULAR HEMOGLOBIN 28.9 pg (27.0-33.4); MEAN CORPUSCULAR HGB CONC 34.1 g/dL (32.0-36.0); MEAN CORPUSCULAR VOLUME 85 fl (80-97); PLATELET COUNT 169 10^3/uL (150-450); RED BLOOD COUNT 4.39 10^6/uL (3.72-5.28); RED CELL DISTRIBUTION WIDTH 16.2 % (11.5-14.0); WHITE BLOOD COUNT 5.4 10^3/uL (4.0-10.5)
[2018-05-25] MEDS ORDERED: ZOLPIDEM TARTRATE 5 MG TABLET PO PRN (06:59)
[2018-05-25 07:20] LABS: ANION GAP 9 (5-19); BLOOD UREA NITROGEN 16 mg/dL (7-20); CARBON DIOXIDE 27 mmol/L (22-30); CHLORIDE 109 mmol/L (98-107); CHOLESTEROL 98.98 mg/dL (0-200); CREATINE KINASE 34 U/L (30-135); GLUCOSE 94 mg/dL (75-110); POTASSIUM 3.6 mmol/L (3.6-5.0); SODIUM 144.9 mmol/L (137-145); TRIGLYCERIDES 76 mg/dL (<150)
[2018-05-25 07:28] LABS: CREATINE KINASE MB 0.46 ng/mL (<4.55)
[2018-05-25 07:31] LABS: DIRECT LDL 41 mg/dL (<100)
[2018-05-25 07:35] LABS: TROPONIN I < 0.012 ng/mL
[2018-05-25] MEDS ORDERED: AMLODIPINE BESYLATE 5 MG TABLET PO SCH (10:00)
[2018-05-25] MEDS ORDERED: ASPIRIN 325 MG TABLET, ENT COATED PO SCH (10:00)
[2018-05-25] MEDS ORDERED: BENAZEPRIL HCL 20 MG TABLET PO SCH (10:00)
[2018-05-25] MEDS ORDERED: GABAPENTIN 300 MG CAPSULE PO SCH (10:00)
[2018-05-25] MEDS ORDERED: MULTIVITAMIN TABLET PO SCH (10:00)
[2018-05-25 13:20] LABS: CREATINE KINASE MB 0.44 ng/mL (<4.55)
[2018-05-25] MEDS ORDERED: REGADENOSON INJ 0.4 MG/5 ML DISP.SYRIN IV ONE (13:22)
[2018-05-25 13:24] LABS: TROPONIN I < 0.012 ng/mL
--- NOTE | 2018-05-25 13:37 | Physician Advisory Note ---
Physician Advisor ProgressNote .: [facility] I have reviewed the medical record for this patient. Physician Advisor Statement: Please consider documentin. Most likely cause of CP: angina/acute coronary insufficiency syndrome related to significant bradycardia? GERD? ... 2. Medical necessity: if pt is felt to need continued monitoring &/or eval through a 2nd MN tonight because of clinical issues (persistent concerning bradycardia, or abnormal results on today's eval, ...) instead of d/c home tonight, please document them & may change to Inpatient status. - If she can be d/c'd today, or kept a 2nd MN tonight only because of logistical delays in testing that are not caused by her underlying condition, then of course she should not be changed to Inpatient status. Thanks! CK
--- NOTE | 2018-05-25 16:24 | XCELERA REPORT ---
[address] [address] Transthoracic Echocardiogram Report Name: SALVATORE LR Age: 87 yrs Gender: Female : 1930 Patient Status: Inpatient Patient Location: [address] [place], [place] [id number] Study Date: 05/25/2018 10:44 AM Height: 64 in Weight: 143 lb BSA: 1.7 m2 Procedure: A two-dimensional transthoracic echocardiogram with color flow and Doppler was performed. Study Quality: Good. Reason For Study: LV Function, size, wall thickness,Valve Function History: Chest pain. Ordering Physician: GUALBERTO GANN Performed By: Sue Ramirez Interpretation Summary The left ventricle is normal in size. There is normal left ventricular wall thickness. Left ventricular systolic function is normal. LV EF is 65% Doppler measurements suggest impaired left ventricular relaxation, which is associated with grade I/IV or mild diastolic dysfunction The left ventricular wall motion is normal. There is no thrombus. There is no ventricular septal defect visualized. The right ventricle is normal in size and function. The right atrium is normal. The left atrial size is normal. The interatrial septum is intact with no evidence for an atrial septal defect. There is no Doppler evidence for an interatrial shunt There is no evidence of mitral valve prolapse. There is no vegetation seen on the mitral valve. There is no mitral valve stenosis. There is a mild amount of mitral regurgitation There is no aortic valvular vegetation. There is no aortic valve stenosis There is no LVOT obstruction. No aortic regurgitation is present. There is no tricuspid stenosis. There is a mild amount of tricuspid regurgitation There is mild pulmonary hypertension by echo RVSP is 34 to 39 mm of Hg , with RA mean of 5 to 10. There is no pulmonic valvular stenosis. There is a mild amount of pulmonic regurgitation The aortic root is normal size. The inferior vena cava appeared normal and decreased > 50% with respiration (RAP 5-10 mmHg) There is no pericardial effusion. MMode/2D Measurements & Calculations RVDd: 3.1 cm LVIDd: 5.2 cm FS: 36.3 % Ao root diam: 3.4 cm IVSd: 1.0 cm LVIDs: 3.3 cm EDV(Teich): 128.8 ml Ao root area: 9.3 cm2 LVPWd: 1.0 cm ESV(Teich): 44.3 ml LA dimension: 3.6 cm EF(Teich): 65.6 % Doppler Measurements & Calculations MV E max milvia: MV P1/2t max milvia: Ao V2 max: LV V1 max P.2 cm/sec 102.2 cm/sec 148.4 cm/sec 5.0 mmHg MV A max milvia: MV P1/2t: 52.6 msec Ao max PG: LV V1 max: 127.3 cm/sec MVA(P1/2t): 4.2 cm2 8.8 mmHg 112.0 cm/sec MV E/A: 0.79 MV dec slope: 568.8 cm/sec2 MV dec time: 0.18 sec PA V2 max: PI end-d milvia: TR max milvia: MV P1/2t-pr_phl: 92.3 cm/sec 111.3 cm/sec 270.1 cm/sec 52.6 msec PA max P.4 mmHg TR max P.2 mmHg Left Ventricle The left ventricle is normal in size. There is normal left ventricular wall thickness. Left ventricular systolic function is normal. LV EF is 65%. Doppler measurements suggest impaired left ventricular relaxation, which is associated with grade I/IV or mild diastolic dysfunction. The left ventricular wall motion is normal. There is no thrombus. There is no ventricular septal defect visualized. Right Ventricle The right ventricle is normal in size and function. Atria The right atrium is normal. The left atrial size is normal. The interatrial septum is intact with no evidence for an atrial septal defect. There is no Doppler evidence for an interatrial shunt. Mitral Valve There is no evidence of mitral valve prolapse. There is no vegetation seen on the mitral valve. There is no mitral valve stenosis. There is a mild amount of mitral regurgitation. Aortic Valve There is no aortic valvular vegetation. There is no aortic valve stenosis. There is no LVOT obstruction. No aortic regurgitation is present. Tricuspid Valve There is no tricuspid stenosis. There is a mild amount of tricuspid regurgitation. There is mild pulmonary hypertension by echo. RVSP is 34 to 39 mm of Hg , with RA mean of 5 to 10. Pulmonic Valve There is no pulmonic valvular stenosis. There is a mild amount of pulmonic regurgitation. Great Vessels The aortic root is normal size. The inferior vena cava appeared normal and decreased > 50% with respiration (RAP 5-10 mmHg). Effusions There is no pericardial effusion. : GUALBERTO GANN > Kori Reza
[2018-05-25 16:32] LABS: AMORPHOUS SEDIMENT,URINE TRACE /HPF; APPEARANCE,URINE SLIGHTLY-CLOUDY; BILIRUBIN,URINE NEGATIVE (NEGATIVE); COLOR,URINE YELLOW; GLUCOSE, URINE NEGATIVE (NEGATIVE); KETONES,URINE NEGATIVE (NEGATIVE); LEUKOCYTE ESTERASE,URINE LARGE (NEGATIVE); NITRITE,URINE POSITIVE (NEGATIVE); PROTEIN,URINE NEGATIVE (NEGATIVE); UROBILINOGEN,URINE NEGATIVE mg/dL (<2.0)
--- NOTE | 2018-05-25 17:46 | PDOC DISCHARGE SUMMARY ---
General - Admit/Disc Date/PCP Admission Date/Primary Care Provider: 05/24/18 17:42 ARNOLDO LEE Discharge Date: 05/25/18 - Discharge Diagnosis (1) Chest pain Is this a current diagnosis for this admission?: Yes Summary: 05/24/2018 patient has history of coronary artery disease status post stent placement in March 2017. Follow-up with injection molding machine offbearer in [facility]. Cardiology consult was requested acute PR code measures were implemented and patient was arranged for formal vascular stress test tomorrow. Patient does not have any stent card with her. Patient's heart rate is 46 in the ER. Beta blockers were not started. 05/25/2018 patient is admitted for chest pain probably secondary to angina/acute coronary syndrome secondary to but bradycardia. Has history of coronary artery disease status post stent placement in 2016. The pharmacological stress test was done today. Which was negative. I discussed the plan with Dr. Reza the injection molding machine offbearer. He is okay to discharge the patient today. He is asymptomatic today. (2) Coronary artery disease Is this a current diagnosis for this admission?: Yes Summary: 05/25/2018 patient has history of coronary artery disease with status post stent placement. Came with chest pain stress test is negative today. (3) HTN (hypertension) Is this a current diagnosis for this admission?: Yes Summary: 05/24/2018 patient blood pressure is 130/89 with heart rate of 46. She is on amlodipine/benazepril 5/20 mg po daily, Lasix 20 mg half tablet daily, Coreg 3.125 mg p.o. twice daily. We will resume her home medications here. 05/25/2018 vitals today blood pressure is 139/53 pulse rate is 74. Cardia resolved. Patient is on amlodipine/Benzapril 5/20 mg daily Lasix 20 mg half tablet daily Coreg 3.125 mg twice a day at home I requested her to resume the medications. (4) TIA (transient ischemic attack) Is this a current diagnosis for this admission?: Yes Summary: 05/24/18 review of the old records shows patient has previous history of CVA/ TIA. But the patient denies she had a history of TIA before. Patient is alert and oriented communicating well on examination no focal neurological deficits noticed. 05/25/2018 patient will records indicates previous history of CVA/TIA. Patient asymptomatic during the hospital course. On examination alert and oriented communicating well no focal neurological deficits. (5) Restless leg syndrome Is this a current diagnosis for this admission?: Yes Summary: 05/24/2018 for her restless leg syndrome patient is on Neurontin at home. Plan is to continue the medication during the hospital stay. Denies any symptoms of restless leg syndrome at this point. 05/25/2018 patient has history of restless leg syndrome on Neurontin no complaints during the hospital stay. (6) Hypothyroidism Is this a current diagnosis for this admission?: Yes Summary: 05/25/2018 patient was advised to continue levothyroxine 50 mcg p.o. daily. (7) Depression Is this a current diagnosis for this admission?: Yes Summary: 05/25/2018 during the hospital stay patient denied any anxiety or depression. At home she is on diazepam 5 mg p.o. daily, Wellbutrin 300 mg p.o. daily. Advised her to continue the home medications. (8) Insomnia Is this a current diagnosis for this admission?: Yes - Additional Information Discharge Diet: Cardiac Discharge Activity: Activity As Tolerated Home Medications: Amlodipine Besylate/Benazepril [Lotrel 5-20 mg Capsule] 1 each PO DAILY Gluc Van/Chondro Van A/Vit C/Mn [Glucosamine Chondroitin Tab] 1 each PO BID Levothyroxine Sodium [Synthroid 0.05 mg Tablet] 50 mcg PO DAILY 07/03/11 Aspirin [Aspirin 81 mg Chewable Tablet] 81 mg PO DAILY 10/18/13 Esomeprazole Magnesium [Nexium] 40 mg PO DAILY 10/18/13 Fluticasone Propionate [Flonase Nasal [place]ay 50 Mcg/Ouray 16 gm] 1 spray IH PRN PRN 10/18/13 Gabapentin [Neurontin 300 mg Capsule] 300 mg PO DAILY 10/18/13 Multivitamin [Tab-A-Nikolay (Multiple Vitamin) Tablet] 1 tab PO DAILY 10/18/13 Zolpidem Tartrate [Ambien 10 mg Tablet] 5 mg PO PRN PRN 10/18/13 Diazepam 5 mg PO PRN PRN 06/29/17 Nitroglycerin 0.4 mg PO PRN PRN 06/29/17 Tramadol HCl [Ultram] 50 mg PO PRN PRN 06/29/17 Bupropion HCl [Wellbutrin Xl 300mg 24hr Tablet] 1 tab PO DAILY 05/24/18 Carvedilol [Coreg 3.125 mg Tablet] 1 tab PO BID 05/24/18 Cholecalciferol (Vitamin D3) [Vitamin D3 1000 Unit Tablet] See Protocol Furosemide [Lasix 20 mg Tablet] 0.5 tab PO DAILY 05/24/18 Levothyroxine Sodium [Synthroid 0.05 mg Tablet] 0.05 mg PO Q6AM tablet History of Present Illness History of Present Illness: SALVATORE LR is a 87 year old female with history of coronary artery disease status post stent placement in March 2017, hypertension, hypothyroidism, abdominal aortic aneurysm, gastroesophageal reflux disease, depression, anxiety , seasonal allergies, restless leg syndrome, came to the emergency room with complaints of chest pain. Patient is given the history of left back pain for the last couple of days on and off. Today this morning she felt tired and felt like sleep he went to the bathroom and started having left-sided chest pain pain scale was 5 x 10 pressure-like pain localized pain not associated with shortness of breath at that time she felt like she is fading away started having severe sweating and the son who lives next door came and give her a nitroglycerin pill after that he felt like his mom is possibly about to pass out so he called EMS to bring her to the hospital for further evaluation. No history of nausea vomiting diarrhea reported. No problems with urination. Complains of occasional headaches. Denies any shortness of breath. She said she has this mild cough. And slight runny nose. Runny nose with clear drainage. In the emergency room the routine workup was done troponin was negative EKG shows sinus bradycardia. On examination patient alert and awake communicating very well. She preferred to be a full code. Physical Exam Vital Signs: Temp Pulse Resp BP Pulse Ox 98.3 F 75 16 161/58 H 98 05/25/18 15:51 05/25/18 15:51 05/25/18 15:51 05/25/18 15:51 05/25/18 15:51 Intake & Output 05/24/18 05/25/18 05/26/18 06:59 06:59 06:59 Intake Total 120 Output Total 700 Balance -580 Weight 65.1 kg General appearance: PRESENT: no acute distress Head exam: PRESENT: atraumatic Eye exam: PRESENT: PERRLA Neck exam: ABSENT: carotid bruit, JVD, lymphadenopathy, thyromegaly Respiratory exam: PRESENT: clear to auscultation kwabena. ABSENT: rales, rhonchi, wheezes Cardiovascular exam: PRESENT: RRR. ABSENT: diastolic murmur, rubs, systolic murmur GI/Abdominal exam: PRESENT: normal bowel sounds, soft. ABSENT: distended, guarding, mass, organolmegaly, rebound, tenderness Neurological exam: PRESENT: alert, awake, oriented to person, oriented to place , oriented to time, oriented to situation, CN II-XII grossly intact. ABSENT: motor sensory deficit Psychiatric exam: PRESENT: appropriate affect, normal mood. ABSENT: homicidal ideation, suicidal ideation Results Laboratory Results: 05/25/18 06:19 05/25/18 06:19 05/25/18 05/25/18 05/25/18 06:19 06:19 15:50 WBC 5.4 RBC 4.39 Hgb 12.7 Hct 37.1 MCV 85 MCH 28.9 MCHC 34.1 RDW 16.2 H Plt Count 169 Sodium 144.9 Potassium 3.6 Chloride 109 H Carbon Dioxide 27 Anion Gap 9 BUN 16 Creatinine 0.91 Est GFR ( Amer) > 60 Est GFR (Non-Af Amer) 58 L Glucose 94 Calcium 9.0 Triglycerides 76 Cholesterol 98.98 LDL Cholesterol Direct 41 VLDL Cholesterol 15.0 HDL Cholesterol 56 Urine Color YELLOW Urine Appearance SLIGHTLY-CLOUDY Urine pH 6.0 Ur Specific [place] 1.010 Urine Protein NEGATIVE Urine Glucose (UA) NEGATIVE Urine Ketones NEGATIVE Urine Blood NEGATIVE Urine Nitrite POSITIVE H Ur Leukocyte Esterase LARGE H Urine WBC (Auto) 107 Urine RBC (Auto) 2 05/24/18 05/25/18 05/25/18 18:08 00:24 06:19 Creatine Kinase CK-MB (CK-2) 0.39 0.46 Troponin I < 0.012 < 0.012 < 0.012 05/25/18 05/25/18 06:19 12:10 Creatine Kinase 34 CK-MB (CK-2) 0.44 Troponin I < 0.012 Impressions: Chest X-Ray 05/24/18 15:29 IMPRESSION: NO ACUTE RADIOGRAPHIC FINDING IN THE CHEST. Qualifiers - * PATIENT BEING DISCHARGED WITH ANY OF THE FOLLOWING DIAGNOSIS: No VTE patient discharged on overlapping Therapy?: No
[2018-05-25 18:02] VITALS: BP 149/56
--- NOTE | 2018-05-25 21:44 | DRAGON STRESS TEST REPORT ---
Intravenous Lexiscan Cardiolite stress test using single photon emmision computerized tomography. Date of procedure: 05/25/2018. Ordering Provider: Dr. Henderson. Patient's status : Inpatient. Indication: Chest pain. Coronary risk factors: Age, and hypertension Resting EKG: Sinus Rhythm. Within Normal Limits Stress EKG: No changes of ischemia. The patient no chest pain or discomfort, and there were no arrhythmias seen. Reason for termination: Protocol. Conclusions: Normal EKG and hemodynamic response to IV Lexiscan. Nuclear data: At rest the patient was given 10.40 millicuries of technetium 99m sestamibi injected intravenously. As per protocol rest non gated SPECT images were obtained. Subsequently the patient was given intravenous Lexiscan at a dose of 0.4 mg in 5 mL intravenously, followed by flush with normal saline. Subsequently the stress dose of 29.0 millicuries of technetium 99m sestamibi was injected intravenously. As per protocol stress gated images were obtained. Nuclear interpretation: Review of images showed that all segments of the myocardium had normal perfusion at rest, and normal perfusion post stress with IV Lexiscan. All segments of the myocardium had normal motion, contraction, and thickening by gated study. T. I D. ratio was normal at 1.05. There is no abnormal transient ischemic dilatation of the left ventricle. Computer read rest, and stress left ventricular ejection fraction were 56 %, and 53 %, respectively. Visually both the stress and rest ejection fractions were normal, and greater than 55%. Conclusion: 1. There is no scintigraphic evidence of Lexiscan induced myocardial ischemia. 2. There is no scintigraphic evidence of myocardial infarction/scar. Recommendations: Aggressive risk factor modification, and treating the underlying co- morbidities . MTDD
[2018-05-25] MEDS ORDERED: FAMOTIDINE 20 MG TABLET PO SCH (22:00)
[2018-05-25] MEDS ORDERED: ENOXAPARIN SODIUM INJ 30 MG/0.3 ML DISP.SYRIN SUBCUT SCH (22:00)
--- NOTE | 2018-06-01 10:08 | EKG REPORT ---
SEVERITY:- ABNORMAL ECG - SINUS RHYTHM VENTRICULAR PREMATURE COMPLEX NONSPECIFIC INTRAVENTRICULAR CONDUCTION DELAY : Confirmed by: David Cadena 25-May-2018 09:08:22
== END 2018-05-25 18:23 | disposition home or self-care (01) ==
LOC: ER 15:23 → EH 17:42 → 4N 19:30
PROVIDERS: ADMIT Hospitalist; ATTEND Hospitalist
DX: R07.89 Other chest pain (principal); I10 Essential (primary) hypertension; G25.81 Restless legs syndrome; E03.9 Hypothyroidism, unspecified; F32.9 Major depressive disorder, single episode, unspecified; G47.00 Insomnia, unspecified; K21.9 Gastro-esophageal reflux disease without esophagitis; I25.10 Atherosclerotic heart disease of native coronary artery without angina pectoris; R09.89 Other specified symptoms and signs involving the circulatory and respiratory systems; R00.1 Bradycardia, unspecified; Z95.5 Presence of coronary angioplasty implant and graft; R05 Cough; Z86.73 Personal history of transient ischemic attack (TIA), and cerebral infarction without residual deficits; Z79.82 Long term (current) use of aspirin; Z79.899 Other long term (current) drug therapy; Z90.49 Acquired absence of other specified parts of digestive tract; Z82.49 Family history of ischemic heart disease and other diseases of the circulatory system; Z82.3 Family history of stroke
CPT/HCPCS: 93005; 99285; 36415 ×2; 82553 ×2; 82550 ×2; 85025; 85027; 80048; 80053; 81001; 84484 ×2; 80061; 93306; 93017; 71045; 78452; 93010; G0378 ×3; A9500; J2785; A9270 ×9; J3490 ×2; J1650; Q9969

== ENCOUNTER 2018-08-13 10:43 | Emergency (ER) | payer MEDICARE, OTHER ==
[2018-08-13 10:54] VITALS: BP 151/48
[2018-08-13] MEDS ORDERED: OXYCODONE-ACETAMINOPHEN 5-325 MG TABLET PO ONE (11:41)
--- NOTE | 2018-08-13 11:42 | ER Document Report ---
ED Medical Screen (RME) - General Chief Complaint: Jaw Pain Stated Complaint: JAW PAIN Time Seen by Provider: 08/13/18 11:32 Primary Care Provider: BECK MENDENHALL PA [Primary Care Provider] - Follow up as needed Notes: Patient is a 88-year-old female that presents to the emergency department for chief complaint of right jaw pain. Patient states his pain started yesterday and has gotten progressively worse, mainly on the outside of her jaw just in front of her ear. ROS: Other than noted above, the 12 point review of systems was reviewed with the patient and were negative, all pertinent findings are included in the HPI. PHYSICAL EXAMINATION: Vital signs reviewed. GENERAL: Well-appearing, well-nourished and in no acute distress. HEAD: Atraumatic, normocephalic. EYES: Pupils equal round extraocular movements intact, conjunctiva are normal. ENT: Nares patent, tenderness to palpation over the right parotid gland, with mild erythema. NECK: Normal range of motion CV: Heart regular rate and rhythm LUNGS: No respiratory distress Musculoskeletal: Normal range of motion NEUROLOGICAL: Normal speech PSYCH: Normal mood, normal affect. MDM: Patient seen and examined for rapid initial assessment. Vital signs reviewed. A comprehensive ED assessment and evaluation of the patient, analysis of test results and completion of the medical decision making process will be conducted by additional ED providers. *Note is created using voice recognition software and may contain spelling, syntax or grammatical errors. TRAVEL OUTSIDE OF THE [place] IN LAST 30 DAYS: No - Related Data Allergies/Adverse Reactions: propoxyphene HCl [From Darvon] Allergy (Intermediate, Verified 06/28/17 15:45) heart palpitations Past Medical History - Past Medical History Cardiac Medical History: Reports: Hx Heart Attack, Hx Hypertension - on meds Denies: Hx Coronary Artery Disease Pulmonary Medical History: Denies: Hx Asthma, Hx Bronchitis, Hx COPD, Hx Pneumonia Neurological Medical History: Denies: Hx Cerebrovascular Accident, Hx Seizures Endocrine Medical History: Reports: Hx Hypothyroidism Renal/ Medical History: Denies: Hx Peritoneal Dialysis GI Medical History: Reports: Hx Gastroesophageal Reflux Disease. Denies: Hx Hepatitis, Hx Hiatal Hernia, Hx Ulcer Musculoskeltal Medical History: Reports Hx Arthritis - Osteo Psychiatric Medical History: Denies: Hx Depression Infectious Medical History: Denies: Hx Hepatitis Past Surgical History: Reports: Hx Appendectomy, Hx Cardiac Surgery - stents x 3, Hx Hysterectomy. Denies: Hx Mastectomy, Hx Open Heart Surgery, Hx Pacemaker - Immunizations Hx Diphtheria, Pertussis, Tetanus Vaccination: Yes History of Influenza Vaccine for 03/2017 - 08/2017 Season: Yes Influenza Administration Date for 03/2017 - 08/2017 Season: 03/24/17 Physical Exam - Vital signs Vitals: Temp Pulse Resp BP Pulse Ox 98 F 87 16 151/48 H 96 08/13/18 10:53 08/13/18 10:53 08/13/18 10:53 08/13/18 10:53 08/13/18 10:53 Course - Vital Signs Vital signs: Temp Pulse Resp BP Pulse Ox 98 F 87 16 151/48 H 96 08/13/18 10:53 08/13/18 10:53 08/13/18 10:53 08/13/18 10:53 08/13/18 10:53 Doctor's Discharge - Discharge Referrals: BECK MENDENHALL PA [Primary Care Provider] - Follow up as needed
[2018-08-13 12:20] LABS: ABSOLUTE LYMPHOCYTES (AUTO) 1.2 10^3/uL (0.5-4.7); ABSOLUTE MONOCYTES (AUTO) 0.7 10^3/uL (0.1-1.4); ABSOLUTE NEUT (AUTO) 8.5 10^3/uL (1.7-8.2); BASOPHILS % (AUTO) 0.2 % (0-2); EOSINOPHILS % (AUTO) 0.2 % (0-6); HEMATOCRIT 43.2 % (36.0-47.0); HEMOGLOBIN 14.7 g/dL (12.0-15.5); LYMPHOCYTES % (AUTO) 11.7 % (13-45); MEAN CORPUSCULAR HGB CONC 33.9 g/dL (32.0-36.0); MEAN CORPUSCULAR VOLUME 85 fl (80-97); MONOCYTES % (AUTO) 6.8 % (3-13); PLATELET COUNT 216 10^3/uL (150-450); RED BLOOD COUNT 5.06 10^6/uL (3.72-5.28); SEGMENTED NEUTROPHILS % (AUTO) 81.1 % (42-78); TOTAL CELLS COUNTED % (AUTO) 100 %; WHITE BLOOD COUNT 10.5 10^3/uL (4.0-10.5)
[2018-08-13 12:50] LABS: ANION GAP 11 (5-19); BLOOD UREA NITROGEN 13 mg/dL (7-20); CALCIUM 9.9 mg/dL (8.4-10.2); CARBON DIOXIDE 30 mmol/L (22-30); CHLORIDE 101 mmol/L (98-107); GLUCOSE 119 mg/dL (75-110); SODIUM 142.3 mmol/L (137-145)
--- NOTE | 2018-08-13 13:46 | RADIOLOGY REPORT (SQ) ---
EXAM DESCRIPTION: CT FACIAL AREA WITH COMPLETED DATE/TIME: 08/13/2018 1:20 pm REASON FOR STUDY: right parotid gland swelling, pain COMPARISON: None. TECHNIQUE: Post contrast images through the facial bones and orbits windowed for bone and soft tissu e. Additional coronal and sagittal reconstructed images reviewed. All images stored on PACS. All CT scanners at this facility use dose modulation, iterative reconstruction, and/or weight based d osing when appropriate to reduce radiation dose to as low as reasonably achievable (ALARA). [facility]: Dose Right [facility]: CareDose [facility]: Dose Right [facility]: Teradose 4D [facility]: [employer] CONTRAST TYPE AND DOSE: contrast/concentration: Isovue 350.00 mg/ml; Total Contrast Delivered: 75.0 ml; Total Saline Delivered: 46.3 ml RENAL FUNCTION: GFR > 60. RADIATION DOSE: CT Rad equipment meets quality standard of care and radiation dose reduction techniq ues were employed. CTDIvol: 30.4 mGy. DLP: 612 mGy-cm. . LIMITATIONS: None. FINDINGS: FACIAL BONES: No fracture or bone lesion. ORBITS: Intact. No fracture. Symmetric intact globes and retroorbital soft tissues. PARANASAL SINUSES: No fluid levels. SOFT TISSUES: Fatty replacement of the right parotid gland. In the right aryepiglottic fold on image 4, there is a 8 mm fluid density lesion probably mucus or be nign cyst. INFERIOR BRAIN: Limited view. No acute findings. OTHER: No other significant finding. IMPRESSION: 1. 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 No evidence of underlying mass. No adenopathy. 2. Incidental finding in the right supraglottic larynx. TECHNICAL DOCUMENTATION: JOB ID: [id number] Quality ID # [id number]: Final reports with documentation of one or more dose reduction techniques (e.g., Au tomated exposure control, adjustment of the mA and/or kV according to patient size, use of iterative reconstruction technique) 2010 [employer](ye)[employer]- All Rights Reserved Reading location - IP/workstation name: [email or web address]
[2018-08-13] MEDS ORDERED: ONDANSETRON HCL INJ/PF 4 MG/2 ML SDV IV ONE (14:11)
[2018-08-13] MEDS ORDERED: MORPHINE SULFATE 10 MG/ML INJ IV ONE (14:11)
[2018-08-13] MEDS ORDERED: AMOXICILLIN TR/POT CLAVULANATE 500-125 MG TAB PO ONE (14:12)
--- NOTE | 2018-08-13 15:58 | ER Document Report ---
ED General - General Chief Complaint: Jaw Pain Stated Complaint: JAW PAIN Time Seen by Provider: 08/13/18 11:32 Primary Care Provider: BECK MENDENHALL PA [NO LOCAL MD] - Follow up as needed TRAVEL OUTSIDE OF THE [place] IN LAST 30 DAYS: No - HPI Notes: Patient presents to the emergency department for evaluation of pain in her right jaw. It started last night. She states it hurts to open her mouth. She denies any fevers or chills, no nausea or vomiting. No injury. She states it happened in her's sleep and woke her this morning. She denies any chest pain or shortness of breath. - Related Data Allergies/Adverse Reactions: propoxyphene HCl [From Darvon] Allergy (Intermediate, Verified 06/28/17 15:45) heart palpitations Past Medical History - General Information source: Patient - Social History Smoking Status: Unknown if Ever Smoked Family History: CAD, CVA Patient has suicidal ideation: No Patient has homicidal ideation: No - Past Medical History Cardiac Medical History: Reports: Hx Heart Attack, Hx Hypertension - on meds Denies: Hx Coronary Artery Disease Pulmonary Medical History: Denies: Hx Asthma, Hx Bronchitis, Hx COPD, Hx Pneumonia Neurological Medical History: Denies: Hx Cerebrovascular Accident, Hx Seizures Endocrine Medical History: Reports: Hx Hypothyroidism Renal/ Medical History: Denies: Hx Peritoneal Dialysis GI Medical History: Reports: Hx Gastroesophageal Reflux Disease. Denies: Hx Hepatitis, Hx Hiatal Hernia, Hx Ulcer Musculoskeletal Medical History: Reports Hx Arthritis - Osteo Psychiatric Medical History: Denies: Hx Depression Infectious Medical History: Denies: Hx Hepatitis Past Surgical History: Reports: Hx Appendectomy, Hx Cardiac Surgery - stents x 3, Hx Hysterectomy. Denies: Hx Mastectomy, Hx Open Heart Surgery, Hx Pacemaker - Immunizations Hx Diphtheria, Pertussis, Tetanus Vaccination: Yes Hx Pneumococcal Vaccination: 05/24/17 Review of Systems - Review of Systems Constitutional: No symptoms reported EENT: See HPI Cardiovascular: No symptoms reported Respiratory: No symptoms reported Gastrointestinal: No symptoms reported -: Yes All other systems reviewed and negative Physical Exam - Vital signs Vitals: Temp Pulse Resp BP Pulse Ox 98 F 87 16 151/48 H 96 08/13/18 10:53 08/13/18 10:53 08/13/18 10:53 08/13/18 10:53 08/13/18 10:53 Interpretation: Hypertensive - Notes Notes: Vital signs reviewed, please refer to chart. Patient is normocephalic, atraumatic. Pupils equal round, reactive to light. Minimal swelling is noted in the area of the right parotid, just anterior to the right tragus. She is markedly tender. Mouth opening is limited. Unable to visualize any sialolith. No significant tenderness to palpation in the mouth, no tenderness or swelling of the tongue. Neck is supple without meningismus. Heart is regular rate and rhythm. Lungs are clear to auscultation bilaterally. Abdomen is soft, nontender, normoactive bowel sounds throughout. Extremities without cyanosis, clubbing, edema. Peripheral pulses are equal. Skin is warm and dry. Patient is awake, alert, neurological exam is nonfocal. Course - Re-evaluation Re-evalutation: 08/13/18 15:56 Patient presents to the emergency department for evaluation. Her findings are most consistent with parotitis. I am unable to palpate any stones. She was medicated with Percocet, had no significant relief. Was further medicated with morphine. I will send her home with a prescription for Percocet as well as Augmentin. She is given her first dose here. She is to follow-up with primary care in 1-2 days, return to emergency department with worsening or new con cerning symptoms of any sort. - Vital Signs Vital signs: Temp Pulse Resp BP Pulse Ox 98 F 87 16 151/48 H 96 08/13/18 10:53 08/13/18 10:53 08/13/18 10:53 08/13/18 10:53 08/13/18 10:53 - Laboratory Result Diagrams: 08/13/18 12:03 08/13/18 12:03 Laboratory results interpreted by me: 08/13/18 08/13/18 12:03 12:03 RDW 15.0 H Seg Neutrophils % 81.1 H Lymphocytes % 11.7 L Absolute Neutrophils 8.5 H Est GFR (Non-Af Amer) 57 L Glucose 119 H - Diagnostic Test Radiology reviewed: Reports reviewed - Fatty infiltration of right parotid gland Discharge - Discharge Clinical Impression: Acute parotitis Condition: Stable Disposition: HOME, SELF-CARE Additional Instructions: Take all of the antibiotic as prescribed until gone. Take pain medication as needed for severe pain. Follow-up with your doctor in 1-2 days. Return to the emergency department with worsening or new concerning symptoms. Referrals: BECK MENDENHALL PA [NO LOCAL MD] - Follow up as needed
[2018-08-13] MEDS ORDERED: KETOROLAC TROMETHAMINE INJ/PF 30 MG/1 ML SDV IV ONE (16:23)
[2018-08-13] MEDS ORDERED: HYDROCODONE/ACETAMINOPHEN 5-325 MG (6 TAB/ER DISP) PO PRN (16:23)
[2018-08-13] MEDS ORDERED: FENTANYL CITRATE INJ/PF 100 MCG/2 ML AMPUL IV ONE (16:24)
[2018-08-13] MEDS ORDERED: ONDANSETRON 4 MG TAB.RAPDIS PO ONE (17:12)
== END 2018-08-13 17:20 | disposition home or self-care (01) ==
LOC: ER 10:43
DX: K11.21 Acute sialoadenitis (principal); R68.84 Jaw pain; I10 Essential (primary) hypertension; Z79.899 Other long term (current) drug therapy
CPT/HCPCS: 99284; 96374; 96375; 36415; 85025; 80048; 70487; A9270 ×4; J3010; J1885; J2270; J2405; S0119

== ENCOUNTER 2019-02-04 21:57 | Emergency (ER) | payer MEDICARE, OTHER ==
[2019-02-05] MEDS ORDERED: NORMAL SALINE 500 ML IV ONE (00:59)
--- NOTE | 2019-02-05 01:04 | ER Document Report ---
ED General - General Chief Complaint: Diarrhea Stated Complaint: DIARRHEA Time Seen by Provider: 02/05/19 00:45 Primary Care Provider: REUBEN ANDERSON MD [Primary Care Provider] - Follow up as needed TRAVEL OUTSIDE OF THE [place] IN LAST 30 DAYS: No - HPI Notes: 88-year-old female presents with her son complaining of 2 months of diarrhea. Patient states she was diagnosed with C. difficile colitis 2 separate times and treated as an outpatient. She is uncertain which into antibiotics they used. One time she was treated [facility], no time in outside hospital. She state s that she is never gotten better. When questioned directly she states that the diarrhea may have slowed down a little bit when she is being treated but never completely improved. She denies any abdominal pain but is at overall feeling of weakness for the last couple of weeks it is progressively getting worse. No fever, chills or sweats. No significant abdominal pain. She is unwilling to directly quantify the average number of stools she has a day but "states she goes all the time". Watery, no blood. Moderate intensity, gradual onset, nonradiating. No other modifying factors, no other associated symptoms, no other provocative or palliative factors. - Related Data Allergies/Adverse Reactions: propoxyphene HCl [From Darvon] Allergy (Intermediate, Verified 06/28/17 15:45) heart palpitations Past Medical History - Social History Smoking Status: Unknown if Ever Smoked Family History: CAD, CVA Patient has suicidal ideation: No Patient has homicidal ideation: No - Medical History Notes: Clues recent C. difficile colitis - Past Medical History Cardiac Medical History: Reports: Hx Heart Attack, Hx Hypertension - on meds Denies: Hx Coronary Artery Disease Pulmonary Medical History: Denies: Hx Asthma, Hx Bronchitis, Hx COPD, Hx Pneumonia Neurological Medical History: Denies: Hx Cerebrovascular Accident, Hx Seizures Endocrine Medical History: Reports: Hx Hypothyroidism Renal/ Medical History: Denies: Hx Peritoneal Dialysis GI Medical History: Reports: Hx Gastroesophageal Reflux Disease. Denies: Hx Hepatitis, Hx Hiatal Hernia, Hx Ulcer Musculoskeletal Medical History: Reports Hx Arthritis - Osteo Psychiatric Medical History: Denies: Hx Depression Infectious Medical History: Denies: Hx Hepatitis Past Surgical History: Reports: Hx Appendectomy, Hx Cardiac Surgery - stents x 3, Hx Hysterectomy. Denies: Hx Mastectomy, Hx Open Heart Surgery, Hx Pacemaker - Immunizations Hx Diphtheria, Pertussis, Tetanus Vaccination: Yes Hx Pneumococcal Vaccination: 05/24/17 Review of Systems - Review of Systems Notes: Review of systems as in the history of present illness, otherwise negative x 10 systems. Physical Exam - Vital signs Vitals: Temp Pulse Resp BP Pulse Ox 98.6 F 76 18 145/66 H 93 02/04/19 22:05 02/04/19 22:05 02/04/19 22:05 02/04/19 22:05 02/04/19 22:05 - Notes Notes: General: Well developed . Slightly dry mucosa. HEENT: Normocephalic, atraumatic. Pupils equal round reactive to light. No JVD. Chest: No trauma. Respiratory: Good air exchange, normal excursion. Cardiac: Regular rhythm. No murmurs or gallops. Abdomen: Soft, benign. Nondistended. Nontender. Back: No asymmetry or gross abnormality. Motor: Decreased tone and power but symmetric Neurologic: Alert, nonfocal. Cranial nerves II-12 are intact. Sensation intact. Vascular: Well perfused. Normal peripheral pulses. Skin: No petechiae or purpura. 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 This point we will proceed with basic laboratory evaluation, chemistries, evaluate bicarb and renal function. Treat with IV fluids. Reassess. 02/05/19 03:46 Labs reviewed. CBC unremarkable, chemistry unremarkable. C. difficile PCR is positive. Patient has had uneventful course in ED. I believe she is safe for discharge home. She is being cared for by her son. Have asked her discharge planning service be consulted in the morning to assist if they can with any potential home health care needs. Going to prescribe her fidaxomicin as she describes possibly being on vancomycin and metronidazole previously. They are not 100% sure, and they will contact her primary care doctor in the morning to establish what medication she was on whether she should actually feel the fidaxomicin. Unfortunately, these records are not currently available to me here in [place]. - Vital Signs Vital signs: Temp Pulse Resp BP Pulse Ox 98.6 F 76 16 167/65 H 94 02/04/19 22:05 02/04/19 22:05 02/05/19 03:01 02/05/19 03:01 02/05/19 03:01 - Laboratory Result Diagrams: 02/05/19 01:45 02/05/19 01:45 Laboratory results interpreted by me: 02/05/19 02/05/19 01:45 01:45 RDW 15.6 H Potassium 3.4 L Est GFR ( Amer) 53 L Est GFR (Non-Af Amer) 44 L Discharge - Discharge Clinical Impression: C. difficile diarrhea Condition: Stable Disposition: HOME, SELF-CARE Instructions: C. (Clostridium) Difficile Infection ([facility]) Prescriptions: Fidaxomicin [Dificid 200 mg Tablet] 200 mg PO BID 10 Days #20 tablet Referrals: REUBEN ANDERSON MD [Primary Care Provider] - Follow up tomorrow
[2019-02-05 01:55] LABS: ABSOLUTE EOSINOPHILS # (AUTO) 0.1 10^3/uL (0.0-0.6); ABSOLUTE LYMPHOCYTES (AUTO) 1.9 10^3/uL (0.5-4.7); ABSOLUTE MONOCYTES (AUTO) 0.6 10^3/uL (0.1-1.4); ABSOLUTE NEUT (AUTO) 7.6 10^3/uL (1.7-8.2); BASOPHILS % (AUTO) 0.5 % (0-2); HEMATOCRIT 39.3 % (36.0-47.0); HEMOGLOBIN 13.2 g/dL (12.0-15.5); LYMPHOCYTES % (AUTO) 18.1 % (13-45); MEAN CORPUSCULAR HGB CONC 33.7 g/dL (32.0-36.0); MEAN CORPUSCULAR VOLUME 83 fl (80-97); MONOCYTES % (AUTO) 5.8 % (3-13); PLATELET COUNT 213 10^3/uL (150-450); RED BLOOD COUNT 4.73 10^6/uL (3.72-5.28); RED CELL DISTRIBUTION WIDTH 15.6 % (11.5-14.0); SEGMENTED NEUTROPHILS % (AUTO) 74.6 % (42-78); TOTAL CELLS COUNTED % (AUTO) 100 %; WHITE BLOOD COUNT 10.2 10^3/uL (4.0-10.5)
[2019-02-05 02:16] LABS: ALBUMIN 3.8 g/dL (3.5-5.0); ALKALINE PHOSPHATASE 80 U/L (38-126); ANION GAP 9 (5-19); ASPARTATE AMINO TRANSFERASE 25 U/L (14-36); BILIRUBIN,DIRECT 0.3 mg/dL (0.0-0.4); BILIRUBIN,TOTAL 0.6 mg/dL (0.2-1.3); BLOOD UREA NITROGEN 13 mg/dL (7-20); CARBON DIOXIDE 26 mmol/L (22-30); CHLORIDE 104 mmol/L (98-107); GLUCOSE 101 mg/dL (75-110); POTASSIUM 3.4 mmol/L (3.6-5.0); TOTAL PROTEIN 6.7 g/dL (6.3-8.2)
[2019-02-05 03:16] VITALS: BP 167/65
== END 2019-02-05 04:03 | disposition home or self-care (01) ==
LOC: ER 21:57
DX: A04.72 Enterocolitis due to Clostridium difficile, not specified as recurrent (principal); I10 Essential (primary) hypertension; Z79.899 Other long term (current) drug therapy
CPT/HCPCS: 99284; 96360; 36415; 85025; 80053; 87493; J7040

== ENCOUNTER 2019-04-20 18:14 | Emergency (ER) | payer MEDICARE, OTHER ==
--- NOTE | 2019-04-20 18:34 | ER Document Report ---
ED Medical Screen (RME) - General Chief Complaint: Fall Stated Complaint: WEAKNESS/FALL Time Seen by Provider: 04/20/19 18:28 Primary Care Provider: REUBEN ANDERSON MD [Primary Care Provider] - Follow up as needed Mode of Arrival: Wheelchair Information source: Patient, Relative Notes: 88-year-old female with history of high blood pressure cardiac disease and C. di fficile presents to the emerge department with complaint of fall. Son reports that patient has had frequent UTIs and been treated with multiple antibiotics and now has developed C. difficile. She is being treated by [facility]. Today she was just standing there became weak felt unstable and fell down. She did not hit her head she did not have change in LOC. Son reports that she is barely eating anything. Son also reports increased confusion. Primary care provider is Dr. Brenner. Son requests patient be admitted for IV fluids and treatment. Patient lives by herself primarily. I have greeted and performed a rapid initial assessment of this patient. A comprehensive ED assessment and evaluation of the patient, analysis of test results and completion of the medical decision making process will be conducted by additional ED providers. Dictation of this chart was performed using voice recognition software; therefore, there may be some unintended grammatical errors. TRAVEL OUTSIDE OF THE [place] IN LAST 30 DAYS: No - Related Data Allergies/Adverse Reactions: propoxyphene HCl [From Darvon] Allergy (Intermediate, Verified 04/20/19 18:30) heart palpitations Past Medical History - Past Medical History Cardiac Medical History: Reports: Hx Heart Attack, Hx Hypertension - on meds Denies: Hx Coronary Artery Disease Pulmonary Medical History: Denies: Hx Asthma, Hx Bronchitis, Hx COPD, Hx Pneumonia Neurological Medical History: Denies: Hx Cerebrovascular Accident, Hx Seizures Endocrine Medical History: Reports: Hx Hypothyroidism Renal/ Medical History: Denies: Hx Peritoneal Dialysis GI Medical History: Reports: Hx Gastroesophageal Reflux Disease. Denies: Hx Hepatitis, Hx Hiatal Hernia, Hx Ulcer Musculoskeltal Medical History: Reports Hx Arthritis - Osteo Psychiatric Medical History: Denies: Hx Depression Infectious Medical History: Denies: Hx Hepatitis Past Surgical History: Reports: Hx Appendectomy, Hx Cardiac Surgery - stents x 3, Hx Hysterectomy. Denies: Hx Mastectomy, Hx Open Heart Surgery, Hx Pacemaker - Immunizations Hx Diphtheria, Pertussis, Tetanus Vaccination: Yes Doctor's Discharge - Discharge Referrals: REUBEN ANDERSON MD [Primary Care Provider] - Follow up as needed
[2019-04-20 19:07] LABS: ABSOLUTE EOSINOPHILS # (AUTO) 0.5 10^3/uL (0.0-0.6); ABSOLUTE MONOCYTES (AUTO) 0.6 10^3/uL (0.1-1.4); ABSOLUTE NEUT (AUTO) 2.3 10^3/uL (1.7-8.2); BASOPHILS % (AUTO) 0.8 % (0-2); EOSINOPHILS % (AUTO) 11.1 % (0-6); HEMATOCRIT 43.4 % (36.0-47.0); HEMOGLOBIN 14.6 g/dL (12.0-15.5); MEAN CORPUSCULAR HGB CONC 33.5 g/dL (32.0-36.0); MEAN CORPUSCULAR VOLUME 87 fl (80-97); MONOCYTES % (AUTO) 12.7 % (3-13); PLATELET COUNT 155 10^3/uL (150-450); RED BLOOD COUNT 5.02 10^6/uL (3.72-5.28); RED CELL DISTRIBUTION WIDTH 17.5 % (11.5-14.0); SEGMENTED NEUTROPHILS % (AUTO) 52.4 % (42-78); TOTAL CELLS COUNTED % (AUTO) 100 %; WHITE BLOOD COUNT 4.4 10^3/uL (4.0-10.5)
[2019-04-20 19:27] LABS: ALBUMIN 4.2 g/dL (3.5-5.0); ALKALINE PHOSPHATASE 81 U/L (38-126); ANION GAP 11 (5-19); ASPARTATE AMINO TRANSFERASE 29 U/L (14-36); BILIRUBIN,DIRECT 0.1 mg/dL (0.0-0.4); BILIRUBIN,TOTAL 0.4 mg/dL (0.2-1.3); BLOOD UREA NITROGEN 29 mg/dL (7-20); CALCIUM 9.5 mg/dL (8.4-10.2); CARBON DIOXIDE 26 mmol/L (22-30); CHLORIDE 103 mmol/L (98-107); GLUCOSE 99 mg/dL (75-110); TOTAL PROTEIN 7.4 g/dL (6.3-8.2)
[2019-04-20 19:55] LABS: APPEARANCE,URINE CLEAR; BILIRUBIN,URINE NEGATIVE (NEGATIVE); COLOR,URINE YELLOW; GLUCOSE, URINE NEGATIVE (NEGATIVE); KETONES,URINE NEGATIVE (NEGATIVE); PROTEIN,URINE NEGATIVE (NEGATIVE); URINE SPECIFIC GRAVITY 1.011; UROBILINOGEN,URINE NEGATIVE mg/dL (<2.0)
--- NOTE | 2019-04-20 20:10 | ER Document Report ---
ED Dizziness/Weakness - General Chief Complaint: Weakness Stated Complaint: WEAKNESS/FALL Time Seen by Provider: 04/20/19 20:10 Primary Care Provider: REUBEN ANDERSON MD [Primary Care Provider] - Follow up as needed Mode of Arrival: Wheelchair Information source: Patient, Relative Notes: HISTORY OF PRESENT ILLNESS: Patient is an 88-year-old female with a past medical history of several chronic conditions including TIA and frequent falls not currently on anticoagulation who presents with recurrent falls while at home. Patient lives with her son, reports she may have lost her balance and fell to the ground, hitting the back of her head on soft carpeted vanessa. She denies passing out and remembers the entire events, was able to stand with assistance of her son. Currently, patient reports feeling "basically normal." Location: Global Onset: Prior to arrival Provocation: Unknown Quality: Weakness, fall Radiation: None Severity: Mild Timing: Soft Associated symptoms: Denies chest pain or shortness of breath, no palpitations, no dizziness or lightheadedness, no weakness of the extremities, no nausea or vomiting REVIEW OF SYSTEMS: CONSTITUTIONAL : Denies fever or chills, no sweats. Denies recent illness. EENT: Denies eye, ear, throat, or mouth pain or symptoms. Denies nasal or sinus congestion. CARDIOVASCULAR: Denies chest pain. RESPIRATORY: Denies cough, cold, or chest congestion. Denies shortness of breath, difficulty breathing, or wheezing. GASTROINTESTINAL: Denies abdominal pain. Denies nausea, vomiting, or diarrhea. Denies constipation. GENITOURINARY: Denies difficulty urinating, painful urination, burning, frequency, or blood in urine. MUSCULOSKELETAL: Denies neck or back pain or joint pain or swelling. SKIN: Denies rash or skin lesions. HEMATOLOGIC : Denies easy bruising or bleeding. LYMPHATIC: Denies swollen, enlarged glands. NEUROLOGICAL: Denies altered mental status or loss of consciousness. Denies headache. Denies weakness or paralysis or loss of use of either side. Denies problems with gait or speech. Denies sensory or motor loss. PSYCHIATRIC: Denies anxiety or stress or depression. All other systems reviewed and negative. PHYSICAL EXAMINATION: GENERAL: Frail but well-appearing, well-nourished and in no acute distress. HEAD: Atraumatic, normocephalic. No scalp deformity, depression, or crepitance. EYES: Pupils are 2mm and equal/round/reactive to light, extraocular movements intact, sclera anicteric, conjunctiva are normal. ENT: Nares patent bilaterally, oropharynx clear without exudates or palatal petechia. Moist mucous membranes. No tonsil hypertrophy. NECK: Normal range of motion, supple without lymphadenopathy. LUNGS: Breath sounds present, equal, and clear to auscultation bilaterally. No wheezes, rales, or rhonchi. HEART: Regular rate and rhythm without murmurs, rubs, or gallops. 2+ peripheral pulses. Normal capillary refill. ABDOMEN: Soft, nontender, nondistended. Normoactive bowel sounds. No guarding, no rebound. No masses appreciated. BACK: Normal contour, no midline tenderness. Rectal exam deferred. PELVC: Deferred. EXTREMITIES: Normal range of motion, no pitting or edema. No cyanosis. NEUROLOGICAL: No focal neurological deficits. Moves all extremities spontaneously and on command. PSYCH: Normal mood, normal affect. No suicidal thoughts/ideations. No homicidal thoughts/ideations. No hallucinations. SKIN: Warm, dry, normal turgor, no rashes or lesions noted. ASSESSMENT AND PLAN: This patient is an 88-year-old female who presents with likely mechanical fall versus UTI versus intracranial hemorrhage/pathology versus traumatic injury versus deconditioning. 1. Will obtain labs, urine, and CT scans of the head/cervical spine. 2. Will anticipate discharge if work-up is negative. TRAVEL OUTSIDE OF THE [place] IN LAST 30 DAYS: No - HPI Patient complains to provider of: Weakness Onset: Just prior to arrival Onset/Duration: Sudden Quality of pain: No pain Severity: Mild Pain Level: Denies Associated symptoms: Weak all over Baseline gait: Walks w/o assistance - Related Data Allergies/Adverse Reactions: propoxyphene HCl [From Darvon] Allergy (Intermediate, Verified 04/20/19 18:30) heart palpitations Home Medications: nitrofurantoin, vancomycin, valium prn, multivitamin, synthroid, carvedilol, asa, Past Medical History - General Information source: Patient, Relative - Social History Smoking Status: Never Smoker Chew tobacco use (# tins/day): No Frequency of alcohol use: None Drug Abuse: None Lives with: Family Family History: CAD, CVA Patient has suicidal ideation: No Patient has homicidal ideation: No - Past Medical History Cardiac Medical History: Reports: Hx Heart Attack, Hx Hypertension - on meds Denies: Hx Coronary Artery Disease Pulmonary Medical History: Reports: None Denies: Hx Asthma, Hx Bronchitis, Hx COPD, Hx Pneumonia EENT Medical History: Reports: None Neurological Medical History: Reports: None. Denies: Hx Cerebrovascular Accident, Hx Seizures Endocrine Medical History: Reports: Hx Hypothyroidism Renal/ Medical History: Reports: None. Denies: Hx Peritoneal Dialysis Malignancy Medical History: Reports: None GI Medical History: Reports: Hx Gastroesophageal Reflux Disease. Denies: Hx Hepatitis, Hx Hiatal Hernia, Hx Ulcer Musculoskeletal Medical History: Reports Hx Arthritis - Osteo Skin Medical History: Reports None Psychiatric Medical History: Reports: None Denies: Hx Depression Infectious Medical History: Reports: Hx C-Diff. Denies: Hx Hepatitis Past Surgical History: Reports: Hx Appendectomy, Hx Cardiac Surgery - stents x 3, Hx Hysterectomy. Denies: Hx Mastectomy, Hx Open Heart Surgery, Hx Pacemaker - Immunizations Hx Diphtheria, Pertussis, Tetanus Vaccination: Yes Hx Pneumococcal Vaccination: 05/24/17 Review of Systems - Review of Systems Constitutional: See HPI, Weakness EENT: No symptoms reported Cardiovascular: No symptoms reported Respiratory: No symptoms reported Gastrointestinal: No symptoms reported Genitourinary: No symptoms reported Female Genitourinary: No symptoms reported Musculoskeletal: No symptoms reported Skin: No symptoms reported Hematologic/Lymphatic: No symptoms reported Neurological/Psychological: No symptoms reported -: Yes All other systems reviewed and negative Physical Exam - Vital signs Vitals: Temp Pulse Resp BP Pulse Ox 98.4 F 76 16 147/72 H 94 04/20/19 18:23 04/20/19 18:23 04/20/19 18:23 04/20/19 18:23 04/20/19 18:23 Interpretation: Normal Course - Re-evaluation Re-evalutation: 04/21/19 00:37 CT scans are negative for acute pathology. Blood work and urinalysis are also negative. Will discharge the patient home with strict return precautions and follow-up with primary care. All results were explained to and discussed with the patient, and all questions addressed and answered. The patient voices both understanding and agreeing with the plan. - Vital Signs Vital signs: Temp Pulse Resp BP Pulse Ox 98.3 F 77 16 173/77 H 95 04/21/19 00:54 04/21/19 00:54 04/21/19 00:54 04/21/19 00:54 04/21/19 00:54 - Laboratory Result Diagrams: 04/20/19 18:41 04/20/19 18:41 Laboratory results interpreted by me: 04/20/19 04/20/19 04/20/19 18:41 18:41 19:14 RDW 17.5 H Eos % (Auto) 11.1 H BUN 29 H Est GFR (MDRD) Non-Af 50 L Urine Ascorbic Acid 40 H - Diagnostic Test Radiology reviewed: Image reviewed, Reports reviewed - EKG Interpretation by Me EKG shows normal: Sinus rhythm Rate: Normal Rhythm: NSR Walker/QRS: No: Right axis deviation, Left axis deviation, RBBB, LBBB, IVCD, LAHB/LAFB, LPHB/LPFB, Bifasicular block Voltage: No: Increased voltage, Consistant with LVH, Decreased voltage, Throughout, Limb leads P Waves: No: MALACHI, LAE, Absent, AV Dissociation, Other Heart block present: No: 1st Degree, Mobitz 1, Mobitz 2, CHB (3rd degree block) When compared to previous EKG there are: No significant change Discharge - Discharge Clinical Impression: Fall Qualifiers: Encounter type: initial encounter Qualified Code(s): W19.XXXA - Unspecified fall, initial encounter Condition: Good Disposition: HOME, SELF-CARE Instructions: Weakness (OM) Additional Instructions: You have been evaluated in the Emergency Department for weakness and falling at home. While here, you had blood work that was normal and CAT scans of your head/neck that were also normal and it is now safe to be discharged home. Please follow-up with your primary physician as instructed in one week to be rechecked. Return to the Emergency Department if you experience confusion, disorientation, difficulty walking, chest pain, or any other concerning symptoms. Referrals: REUBEN ANDERSON MD [Primary Care Provider] - Follow up as needed Print Language: Mosotho
--- NOTE | 2019-04-20 22:05 | RADIOLOGY REPORT (SQ) ---
EXAM DESCRIPTION: CT HEAD WITHOUT IV CONTRAST COMPLETED DATE/TME: 04/20/2019 21:10 CLINICAL HISTORY: 88 years, Female, Fall COMPARISON: Prior CT 06/29/2017 TECHNIQUE: 451 Images stored on PACS. All CT scanners at this facility use dose modulation, iterative reconstruction, and/or weight based dosing when appropriate to reduce radiation dose to as low as reasonably achievable (ALARA). [facility]: Dose Right [facility]: CareDose [facility]: Dose Right [facility]: Teradose 4D [facility]: [employer] LIMITATIONS: None. FINDINGS: The globes are intact. The paranasal sinuses and mastoid air cells are unremarkable. No displaced or depressed skull fracture. No intra or extra-axial hemorrhage. CT is limited for evaluation of acute infarct. No CT evidence for large or territorial acute infarct. Age-appropriate atrophy with small vessel ischemic change. No mass or midline shift IMPRESSION: Age-appropriate atrophy with small vessel ischemic change TECHNICAL DOCUMENTATION: Quality ID # [id number]: Final reports with documentation of one or more dose reduction techniques (e.g., Automated exposure control, adjustment of the mA and/or kV according to patient size, use of iterative reconstruction technique) copyright 2010 [employer]- All Rights Reserved
--- NOTE | 2019-04-21 00:11 | RADIOLOGY REPORT (SQ) ---
EXAM: CT cervical spine without intravenous contrast CLINICAL DATA: 88-year-old female status post fall with neck pain. TECHNICAL DATA: Multiple high-resolution thin axial CT images were performed through the cervical spine followed by sagittal and coronal reconstructed images. The CT study is performed according to ALARA (as low as reasonably achievable) or ALARA/IMAGE GENTLY, with automatic adjustment of mA and/or kV according to patient size. Performed on: 04/20/2019 at 9:24 PM COMPARISONS: None. FINDINGS: The cervical vertebrae are normal in height. There is normal alignment of the vertebrae. There is mild to moderate disc space narrowing at C5-C6 and C6-C7. Bone mineralization is normal. The atlanto-axial articulation is preserved and the odontoid process is intact. There is normal alignment of the facet joints on the parasagittal images. There are mild degenerative changes of the facet joints. There is no evidence of acute fracture or subluxation. There is no significant canal stenosis. There is multilevel bilateral neural foraminal stenosis secondary to uncovertebral joint and facet joint hypertrophy. These findings are most pronounced on the right at C3-C4 and C4-C5 and bilaterally at C5-C6. The paravertebral and paraspinal soft tissues are unremarkable. The lung apices are clear. IMPRESSION: 1. No evidence of acute osseous injury involving the cervical spine. 2. There are degenerative changes of the cervical spine as described above.
[2019-04-21 01:01] VITALS: BP 173/77
--- NOTE | 2019-04-21 07:31 | EKG REPORT ---
SEVERITY:- BORDERLINE ECG - SINUS RHYTHM BORDERLINE T WAVE ABNORMALITIES BORDERLINE PROLONGED QT INTERVAL : Confirmed by: Isael Jaimes MD 21-Apr-2019 07:30:34
== END 2019-04-21 01:01 | disposition home or self-care (01) ==
LOC: ER 18:14
DX: R53.1 Weakness (principal); Z91.81 History of falling; W18.30XA Fall on same level, unspecified, initial encounter; Y92.009 Unspecified place in unspecified non-institutional (private) residence as the place of occurrence of the external cause; I10 Essential (primary) hypertension; Z86.73 Personal history of transient ischemic attack (TIA), and cerebral infarction without residual deficits; Z90.710 Acquired absence of both cervix and uterus; I25.2 Old myocardial infarction
CPT/HCPCS: 36415; 70450; 72125; 80053; 81001; 85025; 93005; 93010; 99284